=== PATIENT | female | born 2000 | race Caucasian/White ===

== ENCOUNTER 2023-01-12 19:50 | Outpatient (CLI) | payer BC, SELFPAY ==
--- NOTE | 2023-01-18 13:42 | W.PM.SLEEP ---
Sleep Study Details Details Interpreting Provider: Bismark Izaguirre MD Date of Sleep Study: 01/12/23 Sleep Study Details: STUDY TYPE:? Home ? BMI: Not record ORDERING PROVIDER:? Catarino INDICATION:? Concerns about sleep apnea ? SLEEP SUMMARY:? 511.5 minutes monitored RESPIRATORY SUMMARY:? AHI 6.8, supine 7.9, left lateral 5.4, right lateral 5.6 Low oxygen 88 0.1% of study oxygen less than 90% Snoring 6.1% of study PERIODIC LIMB MOVEMENTS OF SLEEP:? Not recorded CARDIAC:? Range 55-114, mean 76.3 beats per minute IMPRESSION:? Mild obstructive sleep apnea slightly worse in the supine position RECOMMENDATION: If patient has daytime hypersomnolence, treatment options would include CPAP AutoSet 4-17, dental appliance and/or airway expansion surgery
== END 2023-01-12 19:51 | disposition home or self-care (01) ==
LOC: SLEEP 19:51
PROVIDERS: PCP Otolaryngology; Visit Provider Otolaryngology
DX: G47.33 Obstructive sleep apnea (adult) (pediatric) (principal)
CPT/HCPCS: 95806

== ENCOUNTER 2023-03-06 00:31 | Outpatient (CLI) | payer BC, SELFPAY | END 2023-03-06 00:32 | disposition home or self-care (01) | LOC: AMB 03-22 13:19 | PROVIDERS: PCP Otolaryngology; Visit Provider Family Medicine | DX: F10.129 Alcohol abuse with intoxication, unspecified (principal) | CPT/HCPCS: A0425; A0427 ==

== ENCOUNTER 2023-03-06 00:53 | Emergency (ER) | payer BC, SELFPAY ==
[2023-03-06 00:59] VITALS: BP 91/47; PULSE 102; RESP 14; TEMP 36.1; O2SAT 99
--- NOTE | 2023-03-06 01:08 | ED_ITS ---
HPI - General Adult General Chief complaint: Fall/Minor Trauma Stated complaint: Head Lac, ETOH Time Seen by Provider: 03/06/23 01:07 Source: patient and EMS Mode of arrival: EMS History of Present Illness HPI narrative: 22-year-old intoxicated female arrives by EMS. Reports that she was drinking heavily at a constitution party when she passed out, hitting her head. It sounds as though she did not fall for more than a standing height and the suspicion is actually that she was seated at the time of the fall. Several other intoxicated people were at the [employer] party who witnessed this. She admits to drinking at least 4 shots but does not recall the events of the fall upon immediate arrival. EMS reporting that she does not take medicines, there were friends that confirmed this. No suspicion for . Denies any long-term health issues, she denies these as well but is of course intoxicated. She has been retching and vomiting. There is vomit on her clothing which I can presume is hers. Does not contain any blood. She reports that she had otherwise been feeling normally today prior to drinking alcohol with no unusual events. Friends called EMS because she was acting very sleepy and they did not feel like they could care for her and they were intoxicated states. Past medical history would not be considered reliable but she does deny any long-term health problems, medications, allergies or surgeries. States that there were no illicit drugs besides under age alcohol tonight. ROS would not be considered ideally reliable but was negative with the exception of the vomiting and intoxication and head injury by EMS, others at the scene and patient. [facility] Social History Smoking Status: Unknown if ever smoked How often do you have a drink containing alcohol: 2-4 times a month AUDIT-C Alcohol total score: 2 Exam Const: Vital Signs, click to edit/add: Vital Signs - 24 hr 03/06/23 00:59 03/06/23 02:00 03/06/23 03:00 Temperature 97.0 F L Pulse Rate [Left P ulse Oximeter] 102 H 90 Respiratory Rate 14 14 Blood Pressure [Ri ght Upper Arm] 91/47 L 111/63 109/93 H Pulse Oximetry 99 98 97 Oxygen Delivery Me thod Room Air Room Air Room Air Other: Clearly intoxicated but will follow commands. Will answer questions with seems to be pretty good reliability. Vomit on clothing but appropriately dressed with no signs of assault. HENMT: Other: 8 mm horizontal laceration on bridge of nose/lower forehead area. Underlying hematoma. Nasal bones and facial bones are otherwise appropriately intact. Opens and closes drawn normally. No signs of dental injury or tongue biting. Eye: Common normals: PERRL, EOMs intact bilaterally and conjunctivae normal General eye: normal appearance of both eyes Conjunctiva: conjunctiva(e) normal Pupil: PERRL Neck & C-Spine: Common normals: full ROM and no lymphadenopathy General: normal visual inspection Cervical spine: cervical ROM normal; no cervical spine tenderness Resp: Common normals: normal respiratory effort, no use of accessory muscles and clear to auscultation bilaterally Auscultation: clear to auscultation bilaterally Cardio: Common normals: regular rate, regular rhythm, S1 normal heart sound, S2 normal heart sound and no murmurs Rate: regular rate Rhythm: regular rhythm Heart sounds: S1 normal and S2 normal GI: Common normals: Normal to inspection, nondistended, normoactive bowel sounds present, soft to palpation, non-tender, no hepatosplenomegaly and no masses Palpation: soft and no hepatosplenomegaly Other: No palpable fundal height Extremity: Common normals: normal to inspection, normal capillary refill and no pedal edema Other: No obvious deformity or signs of injury to extremities Neuro: Common normals: moves all extremities and no focal motor deficits Skin: Narrative: Other than the nose, no other signs of injury. Course Vital Signs Vital signs: Initial Vital Signs Temperature 97.0 F L 03/06/23 00:59 Temperature Source Temporal Artery Scan 03/06/23 00:59 Pulse Rate 102 H 03/06/23 00:59 Pulse Rhythm Regular 03/06/23 00:59 Respiratory Rate 14 03/06/23 00:59 Blood Pressure 91/47 L 03/06/23 00:59 Blood Pressure Mean 61 L 03/06/23 00:59 Pulse Oximetry 99 03/06/23 00:59 Oxygen Delivery Method Room Air 03/06/23 00:59 Vital Signs Temperature 97.0 F L 03/06/23 00:59 Pulse Rate 102 H 03/06/23 00:59 Respiratory Rate 14 04/23/23 00:59 Blood Pressure 91/47 L 03/06/23 00:59 Pulse Oximetry 99 03/06/23 00:59 Oxygen Delivery Method Room Air 03/06/23 00:59 Temperature 97.0 F L 03/06/23 00:59 Pulse Rate 90 03/06/23 02:00 Respiratory Rate 14 03/06/23 02:00 Blood Pressure 109/93 H 03/06/23 03:00 Pulse Oximetry 97 03/06/23 03:00 Oxygen Delivery Method Room Air 03/06/23 03:00 Medical Decision Making MDM Narrative Medical decision making narrative: She is intoxicated but can follow commands well. Father no signs of significant cervical spine injury or is likely intracranial hemorrhage. I do not recommend head CT. And dry. The laceration on her bring her forehead/upper nasal bridge does date somewhat and might heal cosmetically appealing, therefore closure is recommended. Procedure wound closure: 8 mm horizontal laceration on forehead/upper nasal bridge noted cleanse with soapy tap water, revealing no foreign body., noted that it gapes with facial movements. Bleeding slightly. This is covered with Mastisol and Steri strip with good hemostasis and cosmetic closure. Patient was given 4 mg Zofran by EMS. Will continue 500 mL of IV fluids, hung by EMS team. Patient will be monitored for the next couple of hours and if there are no signs of neurological deterioration, she be discharged home. Conservative management regarding hematoma and mild head injury. Update: Patient sobering up, no signs of neurological deterioration. Will be discharged back campus where she is visiting a friend. Discharge Plan Discharge Clinical Impression: Alcohol intoxication, Mild closed head injury Patient Disposition: Home w/ Parent or Adult Condition: Improved Instructions: Head Injury (DC), Alcohol Intoxication (DC), Steristrips (ED) Additional Instructions: You have a small laceration to your nose/forehead area. This was covered with a Steri-Strip. This will fall off on its own in about a week. It is okay to normally wash her face but try to avoid this area. If he edges start to peel in a few days, it is okay to gently remove the remainder of the specialized tape. You did hit your head and have a hematoma underneath the cut. This will actually take weeks to go way. You may end up with more bruising including black eyes tomorrow and this is not of concern. Your likely to have symptoms of mild concussion including nausea, light sensitivity, headache and fatigue for the next few days. Try to rest today but you may resume classes as normal on Tuesday. Drink plenty of fluids. Come back to the emergency department if there is any loss of consciousness, persistent vomiting or other neurological changes. Activity Level: No Restrictions Discharge Diet: Regular Stand Alone Forms: [employer] Info Instructions
--- NOTE | 2023-03-06 01:14 | ED.NURSE ---
pt on visual monitor, care-al. pt sleeping
[2023-03-06 02:00] VITALS: BP 111/63; PULSE 90; RESP 14; O2SAT 98
[2023-03-06 03:00] VITALS: BP 109/93; O2SAT 97
--- OUTSIDE RECORDS SUMMARY | 2023-03-06 05:04 | XMS_ITS | Continuity of Care Document ---
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 [facility] [address] [place], [place] [address] Encounter Diagnosis Allergic rhinitis due to pollen(Discharge Diagnosis) - 08/12/18 Allergic rhinitis due to dust mite(Discharge Diagnosis) - 08/12/18 Allergic rhinitis due to animals(Discharge Diagnosis) - 08/12/18 Allergy to mold spores(Discharge Diagnosis) - 08/12/18 Allergies, Adverse Reactions, Alerts No Known Medication Allergies Immunizations Given and Recorded Vaccine Date Status Refusal Reason meningococcal group B vaccine 06/01/18 Given meningococcal conjugate vaccine 06/01/18 Given meningococcal conjugate vaccine 1 06/25/13 Given human papillomavirus vaccine 2 01/04/14 Given human papillomavirus vaccine 3 08/27/13 Given human papillomavirus vaccine 4 06/25/13 Given tetanus/diphth/pertuss (Tdap) adult/adol 5 06/25/13 Given influenza (LAIV) 6 10/19/12 Given influenza (LAIV) 7 09/15/10 Given influenza virus vaccine, inactivated 8 08/26/09 Gi hood influenza virus vaccine, inactivated 9 10/05/08 Gi hood influenza virus vaccine, inactivated 10 09/30/07 G iven influenza virus vaccine, inactivated 11 09/24/06 G iven influenza virus vaccine, inactivated 12 09/25/05 G iven Hep A, pediatric/adolescent 13 04/18/09 Given Hep A, pediatric/adolescent 14 04/17/08 Given Hep A, pediatric/adolescent 15 08/17/07 Given varicella 16 04/17/08 Given varicella 17 08/17/07 Given IPV 18 05/25/07 Given IPV 02 Recorded IPV 02 Recorded IPV 02 Recorded MMR (measles/mumps/rubella) 19 05/25/07 Given MMR (measles/mumps/rubella) 11/15/03 Recorded DTaP 20 05/25/07 Given DTaP 11/15/03 Recorded DTaP 02 Recorded DTaP 02 Recorded DTaP 02 Recorded pneumococcal (PCV7) 11/15/03 Recorded pneumococcal (PCV7) 02 Recorded pneumococcal (PCV7) 02 Recorded pneumococcal (PCV7) 02 Recorded Hib (HbOC) 05/07/03 Recorded Hib (HbOC) 02 Recorded Hib (HbOC) 02 Recorded Hep B 05/07/03 Recorded Hep B 02 Recorded Hep B 02 Recorded 1Result Comment: Unknown Unit of Measure: UNKNOWNUNIT 2Result Comment: Unknown Unit of Measure: UNKNOWNUNIT 3Result Comment: Unknown Unit of Measure: UNKNOWNUNIT 4Result Comment: Unknown Unit of Measure: UNKNOWNUNIT 5Result Comment: Unknown Unit of Measure: UNKNOWNUNIT 6Result Comment: Unknown Unit of Measure: UNKNOWNUNIT 7Result Comment: Unknown Unit of Measure: UNKNOWNUNIT 8Result Comment: Unknown Unit of Measure: UNKNOWNUNIT 9Result Comment: Unknown Unit of Measure: UNKNOWNUNIT 10Result Comment: Unknown Unit of Measure: UNKNOWNUNIT 11Result Comment: Unknown Unit of Measure: UNKNOWNUNIT 12Result Comment: Unknown Unit of Measure: UNKNOWNUNIT 13Result Comment: Unknown Unit of Measure: UNKNOWNUNIT 14Result Comment: Unknown Unit of Measure: UNKNOWNUNIT 15Result Comment: Unknown Unit of Measure: UNKNOWNUNIT 16Result Comment: Unknown Unit of Measure: UNKNOWNUNIT 17Result Comment: Unknown Unit of Measure: UNKNOWNUNIT 18Result Comment: Unknown Unit of Measure: UNKNOWNUNIT 19Result Comment: Unknown Unit of Measure: UNKNOWNUNIT 20Result Comment: Unknown Unit of Measure: UNKNOWNUNIT Medications fluticasone 50 mcg/inh nasal spray See Instructions, Instructions: USE 1 SPRAY IN EACH NOSTRL DAILY, # 32 gm, Pharmacy: [facility], USE 1 SPRAY IN EACH NOSTRL DAILY Start Date: 08/20/14 Stop Date: 08/21/14 Status: Discontinued montelukast 10 mg oral tablet 1 tab(s) ( 10 mg ), PO, qPM, # 90 tab(s), 2 Refill(s), Type: Maintenance, Pharmacy: [facility], 1 tab(s) po qpm Start Date: 02/06/18 Status: Ordered montelukast 5 mg oral tablet, chewable 1 tab(s) ( 5 mg ), Chewed, qPM, # 90 tab(s), 1 Refill(s), Type: Maintenance Start Date: 02/10/15 Stop Date: 02/10/15 Status: Discontinued montelukast 5 mg oral tablet, chewable 1 tab(s) ( 5 mg ), Chewed, qPM, # 90 tab(s), 1 Refill(s), Type: Maintenance, Pharmacy: [facility]/pharmacy#[id number], 1 tab(s) chewed qpm Start Date: 06/25/14 Stop Date: 08/21/14 Status: Discontinued ProAir HFA 90 mcg/inh inhalation aerosol See Instructions, Instructions: 2 puff(s) inh every 4 hours as needed and/or 10 -20 minutes before exercise as needed., 0 Refill(s), Type: Maintenance Start Date: 06/25/14 Status: Ordered ProAir HFA 90 mcg/inh inhalation aerosol 2 puff(s), inh, q4-6 hrs, Instructions: use with spacer chamber, # 1 EA, 1 Refill(s), Type: Maintenance, Pharmacy: [facility]/pharmacy #[id number], Please keep on file until patient request refill., 2 puff(s) Inhale q4-6 hrs,Instr:use with spacer chamber Start Date: 07/03/18 Status: Ordered Qvar 80 mcg/inh inhalation aerosol 2 puff(s), inh, 1-2x/day, # 1 EA, 3 Refill(s), Type: Maintenance Start Date: 02/10/15 Stop Date: 02/10/15 Status: Discontinued Qvar 80 mcg/inh inhalation aerosol See Instructions, Instructions: INHALE 2 PUFFS BY MOUTH TWO TIMES A DAY, # 26.1 gm, Pharmacy: [facility], INHALE 2 PUFFS BY MOUTH TWO TIMES A DAY Start Date: 06/28/14 Stop Date: 08/21/14 Status: Discontinued Qvar Redihaler 80 mcg/inh inhalation aerosol 2 puff(s), inh, 1-2x/day, # 3 EA, 2 Refill(s), Type: Maintenance, Pharmacy: [facility], 2 puff(s) inh 1-2x/day Start Date: 02/06/18 Status: Ordered Zoloft 50 mg oral tablet 1.5 tab(s) ( 75 mg ), PO, Daily, # 135 tab(s), 3 Refill(s), Type: Maintenance, Pharmacy: [facility], 1.5 tab(s) po daily Start Date: 07/21/17 Status: Ordered Problem List Condition Effective Dates Status Health Status Inform ant 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 Allergic rhinitis due to dus t mite(Confirmed) Active Allergic rhinitis due to pollen(Confirmed) Active Allergy to mold spores(Confirmed) Active Atopic dermatitis(Confirmed) Active Asthma, mild persistent(Confirmed) Active Social anxiety disorder(Confirmed) Active Diagnosis Diagnosis Type Effective Dates Health Status Cl inical Service Informant Allergic rhinitis due to animals Discharge Diagnosis 08/12/18 Allergic rhinitis due to pollen Discharge Diagnosis 08/12/18 Allergy to mold spores Discharge Diagnosis 08/12/18 Allergic rhinitis due to dust mite Discharge Diagnosis 08/12/18 Social History Social History Type Response Smoking Status Never (less than 100 in lifetime); Concerns about tobacco use in household: No 1 entered on: 08/25/17 1father smokes outside no quit info wanted
--- OUTSIDE RECORDS SUMMARY | 2023-03-06 05:04 | XMS_ITS | Continuity of Care Document ---
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 [place], [place] [address] Encounter Diagnosis Allergic rhinitis due to pollen(Discharge Diagnosis) - 09/08/19 Allergic rhinitis due to dust mite(Discharge Diagnosis) - 09/08/19 Allergic rhinitis due to animals(Discharge Diagnosis) - 09/08/19 Allergy to mold spores(Discharge Diagnosis) - 09/08/19 Allergies, Adverse Reactions, Alerts No Known Medication Allergies Immunizations Given and Recorded Vaccine Date Status Refusal Reason MMR (measles/mumps/rubella) 04/13/19 Given MMR (measles/mumps/rubella) 1 05/25/07 Given MMR (measles/mumps/rubella) 11/15/03 Recorded meningococcal group B vaccine 06/01/18 Given meningococcal conjugate vaccine 06/01/18 Given meningococcal conjugate vaccine 2 06/25/13 Given human papillomavirus vaccine 3 01/04/14 Given human papillomavirus vaccine 4 08/27/13 Given human papillomavirus vaccine 5 06/25/13 Given tetanus/diphth/pertuss (Tdap) adult/adol 6 06/25/13 Given influenza (LAIV) 7 10/19/12 Given influenza (LAIV) 8 09/15/10 Given influenza virus vaccine, inactivated 9 08/26/09 Gi hood influenza virus vaccine, inactivated 10 10/05/08 G iven influenza virus vaccine, inactivated 11 09/30/07 G iven influenza virus vaccine, inactivated 12 09/24/06 G iven influenza virus vaccine, inactivated 13 09/25/05 G iven Hep A, pediatric/adolescent 14 04/18/09 Given Hep A, pediatric/adolescent 15 04/17/08 Given Hep A, pediatric/adolescent 16 08/17/07 Given varicella 17 04/17/08 Given varicella 18 08/17/07 Given IPV 19 05/25/07 Given IPV 02 Recorded IPV 02 Recorded IPV 02 Recorded DTaP 20 05/25/07 Given DTaP 11/15/03 Recorded DTaP 02 Recorded DTaP 02 Recorded DTaP 02 Recorded pneumococcal (PCV7) 11/15/03 Recorded pneumococcal (PCV7) 02 Recorded pneumococcal (PCV7) 02 Recorded pneumococcal (PCV7) 02 Recorded Hep B 05/07/03 Recorded Hep B 02 Recorded Hep B 02 Recorded Hib (HbOC) 05/07/03 Recorded Hib (HbOC) 02 Recorded Hib (HbOC) 02 Recorded 1Result Comment: Unknown Unit of [...] Comment: Unknown Unit of Measure: UNKNOWNUNIT Medications cetirizine 10 mg oral tablet = 1 tab(s) ( 10 mg ), PO, Daily, # 90 tab(s), 3 Refill(s), Type: Maintenance, [id number], 1 tab(s) Oral daily Start Date: 01/23/19 Status: Ordered fluticasone 50 mcg/inh nasal spray See Instructions, Instructions: USE 1 SPRAY IN EACH NOSTRL DAILY, # 32 gm, Pharmacy: [facility], USE 1 SPRAY IN EACH NOSTRL DAILY Start Date: 08/20/14 Stop Date: 08/21/14 Status: Discontinued fluticasone 50 mcg/inh nasal spray = 1 spray(s), Nasal, daily, Instructions: for allergies, # 16 gm, 3 Refill(s), Type: Maintenance, [id number], 1 spray(s) Nasal daily,Instr:for allergies Start Date: 01/23/19 Status: Ordered montelukast 10 mg oral tablet = 1 tab(s) ( 10 mg ), PO, qPM, # 90 tab(s), 2 Refill(s), Type: Maintenance, [id number], 1 tab(s) Oral qpm Start Date: 01/23/19 Status: Ordered montelukast 5 mg oral tablet, chewable 1 tab(s) ( 5 mg ), Chewed, qPM, # 90 tab(s), 1 Refill(s), Type: Maintenance, Pharmacy: [facility]/pharmacy#[id number], 1 tab(s) chewed qpm Start Date: 06/25/14 Stop Date: 08/21/14 Status: Discontinued montelukast 5 mg oral tablet, chewable 1 tab(s) ( 5 mg ), Chewed, qPM, # 90 tab(s), 1 Refill(s), Type: Maintenance Start Date: 02/10/15 Stop Date: 02/10/15 Status: Discontinued ProAir HFA 90 mcg/inh inhalation aerosol See Instructions, Instructions: 2 puff(s) inh every 4 hours as needed and/or 10 -20 minutes before exercise as needed., 0 Refill(s), Type: Maintenance Start Date: 06/25/14 Status: Ordered ProAir HFA 90 mcg/inh inhalation aerosol 2 puff(s), inh, q4-6 hrs, # 1 EA, 0 Refill(s), Type: Maintenance, Pharmacy: [facility]/pharmacy #[id number], Please keep on file until patient request refill., 2 puff(s) Inhale q4-6 hrs Start Date: 01/23/19 Status: Ordered Qvar 80 mcg/inh inhalation aerosol See Instructions, Instructions: INHALE 2 PUFFS BY MOUTH TWO TIMES A DAY, # 26.1 gm, [email or web address], INHALE 2 PUFFS BY MOUTH TWO TIMES A DAY Start Date: 06/28/14 Stop Date: 08/21/14 Status: Discontinued Qvar 80 mcg/inh inhalation aerosol 2 puff(s), inh, 1-2x/day, # 1 EA, 3 Refill(s), Type: Maintenance Start Date: 02/10/15 Stop Date: 02/10/15 Status: Discontinued Qvar Redihaler 80 mcg/inh inhalation aerosol 2 puff(s), inh, 1-2x/day, # 1 EA, 5 Refill(s), Type: Maintenance, Pharmacy: [facility]/pharmacy #[id number], 2 puff(s) Inhale 1-2x/day Start Date: 01/23/19 Status: Ordered Zoloft 50 mg oral tablet 1.5 tab(s) ( 75 mg ), PO, Daily, # 135 tab(s), 3 Refill(s), Type: Maintenance, Pharmacy: [facility], 1.5 tab(s) po daily Start Date: 07/21/17 Stop Date: 08/29/18 Status: Discontinued Zoloft 50 mg oral tablet = 1.5 tab(s) ( 75 mg ), PO, Daily, # 45 tab(s), 6 Refill(s), Type: Maintenance, Pharmacy: [facility]/pharmacy #[id number], 1.5 tab(s) Oral daily,x30 day(s) Start Date: 08/29/18 Stop Date: 03/27/19 Status: Ordered Problem List Condition Effective Dates Status Health Status Inform ant 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 Allergic rhinitis due to dus t mite(Confirmed) Active Allergic rhinitis due to pollen(Confirmed) Active Allergy to mold spores(Confirmed) Active Atopic dermatitis(Confirmed) Active Asthma, mild persistent(Confirmed) Active Social anxiety disorder(Confirmed) Active Diagnosis Diagnosis Type Effective Dates Health Status Cl inical Service Informant Allergy to mold spores Discharge Diagnosis 09/08/19 Allergic rhinitis due to dust mite Discharge Diagnosis 09/08/19 Allergic rhinitis due to pollen Discharge Diagnosis 09/08/19 Allergic rhinitis due to animals Discharge Diagnosis 09/08/19 Social History Social History Type Response Smoking Status Never (less than 100 in lifetime); Concerns about tobacco use in household: No 1 entered on: 08/25/17 1father smokes outside no quit info wanted
--- OUTSIDE RECORDS SUMMARY | 2023-03-06 05:04 | XMS_ITS | Continuity of Care Document ---
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) - 01/30/19 Allergic rhinitis due to dust mite(Discharge Diagnosis) - 01/30/19 Allergy to mold spores(Discharge Diagnosis) - 01/30/19 Allergies, Adverse Reactions, Alerts No Known Medication [...] 90 tab(s), 3 Refill(s), Type: Maintenance, Pharmacy: [facility]/pharmacy #[id number], 1 tab(s) Oral daily Start Date: 01/23/19 Status: Ordered fluticasone 50 mcg/inh nasal spray See Instructions, Instructions: USE 1 SPRAY IN EACH NOSTRL DAILY, # 32 gm, Pharmacy: [facility], USE 1 SPRAY IN EACH NOSTRL DAILY Start Date: 08/20/14 Stop Date: 08/21/14 Status: Discontinued fluticasone 50 mcg/inh nasal spray = 1 spray(s), Nasal, daily, Instructions: for allergies, # 16 gm, 3 Refill(s), Type: Maintenance, [id number] 1 spray(s) Nasal daily,Instr:for allergies Start Date: 01/23/19 Status: Ordered montelukast 10 mg oral tablet = 1 tab(s) ( 10 mg ), PO, qPM, # 90 tab(s), 2 Refill(s), Type: Maintenance, Pharmacy: [facility]/pharmacy #[id number], 1 tab(s) Oral qpm Start Date: 01/23/19 Status: Ordered montelukast 5 mg oral tablet, chewable 1 tab(s) ( 5 mg ), Chewed, qPM, # 90 tab(s), 1 Refill(s), Type: Maintenance Start Date: 02/10/15 Stop Date: 02/10/15 Status: Discontinued montelukast 5 mg oral tablet, chewable 1 tab(s) ( 5 mg ), Chewed, qPM, # 90 tab(s), 1 Refill(s), Type: Maintenance, Pharmacy: [facility]/pharmacy#0241, 1 tab(s) chewed qpm Start Date: 06/25/14 Stop Date: 08/21/14 Status: Discontinued ProAir HFA 90 mcg/inh inhalation aerosol 2 puff(s), inh, q4-6 hrs, # 1 EA, 0 Refill(s), Type: Maintenance, Pharmacy: [facility]/pharmacy #[id number], Please keep on file until patient request refill., 2 puff(s) Inhale q4-6 hrs Start Date: 01/23/19 Status: Ordered ProAir HFA 90 mcg/inh inhalation aerosol See Instructions, Instructions: 2 puff(s) inh every 4 hours as needed and/or 10 -20 minutes before exercise as needed., 0 Refill(s), Type: Maintenance Start Date: 06/25/14 Status: Ordered Qvar 80 mcg/inh inhalation aerosol 2 puff(s), inh, 1-2x/day, # 1 EA, 3 Refill(s), Type: Maintenance Start Date: 02/10/15 Stop Date: 02/10/15 Status: Discontinued Qvar 80 mcg/inh inhalation aerosol See Instructions, Instructions: INHALE 2 PUFFS BY MOUTH TWO TIMES A DAY, # 26.1 gm, Pharmacy: [facility], INHALE 2 PUFFS BY MOUTH TWO TIMES A DAY Start Date: 06/28/14 Stop Date: 08/21/14 Status: Discontinued Qvar Redihaler 80 mcg/inh inhalation aerosol 2 puff(s), inh, 1-2x/day, # 1 EA, 5 Refill(s), Type: Maintenance, Pharmacy: [facility]/pharmacy #[id number], 2 puff(s) Inhale 1-2x/day Start Date: 01/23/19 Status: Ordered Zoloft 50 mg oral tablet 1.5 tab(s) ( 75 mg ), PO, Daily, # 135 tab(s), 3 Refill(s), Type: Maintenance, [facility]acy: [facility], 1.5 tab(s) po daily Start Date: 07/21/17 Stop Date: 08/29/18 Status: Discontinued Zoloft 50 mg oral tablet = 1.5 tab(s) ( 75 mg ), PO, Daily, # 45 tab(s), 6 Refill(s), Type: Maintenance, Pharmacy: [facility]/pharmacy #[id number], 1.5 tab(s) Oral daily,x30 day(s) Start [...] inical Service Informant Allergic rhinitis due to dust mite Discharge Diagnosis 01/30/19 Allergic rhinitis due to animals Discharge Diagnosis 01/30/19 Allergic rhinitis due to pollen Discharge Diagnosis 01/30/19 Allergy to mold spores Discharge Diagnosis 01/30/19 Social History Social History Type Response Smoking Status Never (less than 100 in lifetime); Concerns about tobacco use in household: No 1 entered on: 08/25/17 1father smokes outside no quit info wanted
--- OUTSIDE RECORDS SUMMARY | 2023-03-06 05:04 | XMS_ITS | Continuity of Care Document ---
Author Name Unknown Organization [facility] Address [address] [address]- Care Team Providers Care Press Smith Helper Name Role Phone Tesfaye Arthur MD Primary Care Physician Encounter 05/05/19 - 05/07/[address] 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) - 05/05/19 Allergic rhinitis due to dust mite(Discharge Diagnosis) - 05/05/19 Allergy to mold spores(Discharge Diagnosis) - 05/05/19 Allergies, Adverse Reactions, Alerts No Known Medication [...] 90 tab(s), 3 Refill(s), Type: Maintenance, [id number] 1 tab(s) Oral daily Start Date: 01/23/19 Status: Ordered fluticasone 50 mcg/inh nasal spray See Instructions, Instructions: USE 1 SPRAY IN EACH NOSTRL DAILY, # 32 gm, Pharmacy: [facility], USE 1 SPRAY IN EACH NOSTRL DAILY Start Date: 08/20/14 Stop Date: 08/21/14 Status: Discontinued fluticasone 50 mcg/inh nasal spray = 1 spray(s), Nasal, daily, Instructions: for allergies, # 16 gm, 3 Refill(s), Type: Maintenance, [id number], 1 spray(s) Nasal daily,Instr:for allergies Start Date: 01/23/19 Status: Ordered montelukast 10 mg oral tablet = 1 tab(s) ( 10 mg ), PO, qPM, # 90 tab(s), 2 Refill(s), Type: Maintenance, [id number], 1 tab(s) Oral qpm Start Date: 01/23/19 Status: Ordered montelukast 5 mg oral tablet, chewable 1 tab(s) ( 5 mg ), Chewed, qPM, # 90 tab(s), 1 Refill(s), Type: Maintenance, Pharmacy: [facility]/pharm[facility]#0241, 1 tab(s) chewed qpm Start Date: [...] 1 EA, 0 Refill(s), Type: Maintenance, Pharmacy: [facility]/pharmacy #0241, Please keep on file until patient request refill., 2 puff(s) Inhale q4-6 hrs Start Date: 01/23/19 Status: Ordered Qvar 80 mcg/inh inhalation aerosol See Instructions, Instructions: INHALE 2 PUFFS BY MOUTH TWO TIMES A DAY, # 26.1 gm, [facility] INHALE 2 PUFFS BY MOUTH TWO TIMES A DAY Start Date: 06/28/14 Stop Date: 08/21/14 Status: Discontinued Qvar 80 mcg/inh inhalation aerosol 2 puff(s), inh, 1-2x/day, # 1 EA, 3 Refill(s), Type: Maintenance Start Date: 02/10/15 Stop Date: 02/10/15 Status: Discontinued Qvar Redihaler 80 mcg/inh inhalation aerosol 2 puff(s), inh, 1-2x/day, # 1 EA, 5 Refill(s), Type: Maintenance, Pharmacy: [facility]/pharm[facility] #0241, 2 puff(s) Inhale 1-2x/day Start Date: 01/23/19 Status: Ordered Zoloft 50 mg oral tablet 1.5 tab(s) ( 75 mg ), PO, Daily, # 135 tab(s), 3 Refill(s), Type: Maintenance, Pharmacy: [facility], 1.5 tab(s) po daily Start Date: 07/21/17 Stop Date: 08/29/18 Status: Discontinued Zoloft 50 mg oral tablet = 1.5 tab(s) ( 75 mg ), PO, Daily, # 45 tab(s), 6 Refill(s), Type: Maintenance, Pharmacy: [facility]/pharm[facility] #0241, 1.5 tab(s) Oral daily,x30 day(s) [...] rhinitis due to dust mite Discharge Diagnosis 05/05/19 Allergic rhinitis due to pollen Discharge Diagnosis 05/05/19 Allergic rhinitis due to animals Discharge Diagnosis 05/05/19 Allergy to mold spores Discharge Diagnosis 05/05/19 Social History Social History Type Response Smoking Status Never (less than 100 in lifetime); Concerns about tobacco use in household: No 1 entered on: 08/25/17 1father smokes outside no quit info wanted
--- OUTSIDE RECORDS SUMMARY | 2023-03-06 05:04 | XMS_ITS | Continuity of Care Document ---
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) - 08/28/19 Allergic rhinitis due to pollen(Discharge Diagnosis) - 08/28/19 Allergic rhinitis due to dust mite(Discharge Diagnosis) - 08/28/19 Allergies, Adverse Reactions, Alerts No Known Medication [...] tab(s), 3 Refill(s), Type: Maintenance, [id number], 1 tab(s) Oral daily Start Date: 01/23/19 Status: Ordered fluticasone 50 mcg/inh nasal spray See Instructions, Instructions: USE 1 SPRAY IN EACH NOSTRL DAILY, # 32 gm, Pharmacy: [facility], USE 1 SPRAY IN EACH NOSTRL DAILY Start Date: 08/20/14 Stop Date: 08/21/14 Status: Discontinued fluticasone 50 mcg/inh nasal spray = 1 spray(s), Nasal, daily, Instructions: for allergies, # 16 gm, 3 Refill(s), Type: Maintenance, [id number], 1 spray(s) Nasal daily,Instr:for allergies Start Date: 01/23/19 Status: Ordered montelukast 10 mg oral tablet = 1 tab(s) ( 10 mg ), PO, qPM, # 90 tab(s), 2 Refill(s), Type: Maintenance, [id number], 1 tab(s) Oral qpm Start Date: 01/23/19 Status: Ordered montelukast 5 mg oral tablet, chewable 1 tab(s) ( 5 mg ), Chewed, qPM, # 90 tab(s), 1 Refill(s), Type: Maintenance, Pharmacy: [facility]/pharmacy#0241, 1 tab(s) chewed qpm Start Date: 06/25/14 [...] 1 EA, 0 Refill(s), Type: Maintenance, [facility], Please keep on file until patient request refill., 2 puff(s) Inhale q4-6 hrs Start Date: 01/23/19 Status: Ordered Qvar 80 mcg/inh inhalation aerosol See Instructions, Instructions: INHALE 2 PUFFS BY MOUTH TWO TIMES A DAY, # 26.1 gm, Pharmacy: [facility], INHALE 2 PUFFS BY MOUTH TWO TIMES A DAY Start Date: 06/28/14 Stop Date: 08/21/14 Status: Discontinued Qvar 80 mcg/inh inhalation aerosol 2 puff(s), inh, 1-2x/day, # 1 EA, 3 Refill(s), Type: Maintenance Start Date: 02/10/15 Stop Date: 02/10/15 Status: Discontinued Qvar Redihaler 80 mcg/inh inhalation aerosol 2 puff(s), inh, 1-2x/day, # 1 EA, 5 Refill(s), Type: Maintenance, [id number], 2 puff(s) Inhale 1-2x/day Start Date: 01/23/19 Status: Ordered Zoloft 50 mg oral tablet 1.5 tab(s) ( 75 mg ), PO, Daily, # 135 tab(s), 3 Refill(s), Type: Maintenance, Pharmacy: [facility], 1.5 tab(s) po daily Start Date: 07/21/17 Stop Date: 08/29/18 Status: Discontinued Zoloft 50 mg oral tablet = 1.5 tab(s) ( 75 mg ), PO, Daily, # 45 tab(s), 6 Refill(s), Type: Maintenance, Pharmacy: [facility]/pharmacy #0241, 1.5 tab(s) Oral daily,x30 day(s) Start [...] Informant Allergy to mold spores Discharge Diagnosis 08/28/19 Allergic rhinitis due to animals Discharge Diagnosis 08/28/19 Allergic rhinitis due to pollen Discharge Diagnosis 08/28/19 Allergic rhinitis due to dust mite Discharge Diagnosis 08/28/19 Social History Social History Type Response Smoking Status Never (less than 100 in lifetime); Concerns about tobacco use in household: No 1 entered on: 08/25/17 1father smokes outside no quit info wanted
--- OUTSIDE RECORDS SUMMARY | 2023-03-06 05:04 | XMS_ITS | Continuity of Care Document ---
Author Name Unknown Organization [facility] Address [address] [address]- Care Team Providers Care Director Of Sustainability Name Role Phone Tesfaye Arthur MD Primary Care Physician [phone] Encounter 07/13/22 - 07/15/[address] [place], [place] [address] Encounter Diagnosis Depression screen(Discharge Diagnosis) - 07/13/22 Mild intermittent asthma(Discharge Diagnosis) - 07/13/22 Social anxiety disorder(Discharge Diagnosis) - 07/13/22 Attending Physician: Tesfaye Arthur MD Referring Physician: Tesfaye Arthur MD Allergies, Adverse Reactions, Alerts No Known Medication Allergies Immunizations Given and Recorded Vaccine Date Status Refusal Reason SARS-CoV-2 (COVID-19) Pfizer-162b2 10/27/21 Record ed SARS-CoV-2 (COVID-19) Pfizer-162b2 01/13/21 Record ed SARS-CoV-2 (COVID-19) Pfizer-162b2 12/22/20 Record ed influenza virus vaccine, inactivated 08/15/21 Bandar rded influenza virus vaccine, inactivated 08/28/20 Bandar rded influenza virus vaccine, inactivated 10/07/19 Bandar rded influenza virus vaccine, inactivated 09/10/18 Bandar rded influenza virus vaccine, inactivated 08/31/13 Bandar rded influenza virus vaccine, inactivated 1 08/26/09 Gi hood influenza virus vaccine, inactivated 2 10/05/08 Gi hood influenza virus vaccine, inactivated 3 09/30/07 Gi hood influenza virus vaccine, inactivated 4 09/24/06 Gi [facility] influenza virus vaccine, inactivated 5 09/25/05 [facility] meningococcal group B vaccine 06/11/20 Recorded meningococcal group B vaccine 06/01/18 Given MMR (measles/mumps/rubella) 04/13/19 Given MMR (measles/mumps/rubella) 6 05/25/07 Given MMR (measles/mumps/rubella) 11/15/03 Recorded meningococcal conjugate vaccine 06/01/18 Given meningococcal conjugate vaccine 7 06/25/13 Given influenza 09/19/16 Recorded influenza (LAIV) 10/01/15 Recorded influenza (LAIV) 09/30/14 Recorded influenza (LAIV) 8 10/19/12 Given influenza (LAIV) 9 09/15/10 Given human papillomavirus vaccine 10 01/04/14 Given human papillomavirus vaccine 11 08/27/13 Given human papillomavirus vaccine 12 06/25/13 Given human papillomavirus vaccine 06/25/03 Recorded tetanus/diphth/pertuss (Tdap) adult/adol 13 06/25/13 Given Hep A, pediatric/adolescent 14 04/18/09 Given Hep A, pediatric/adolescent 15 04/17/08 Given Hep A, pediatric/adolescent 16 08/17/07 Given varicella 17 04/17/08 Given varicella 18 08/17/07 Given varicella 05/07/03 Recorded IPV 19 05/25/07 Given IPV 02 Recorded [...] Comment: Unknown Unit of Measure: UNKNOWNUNIT Medications ProAir HFA 90 mcg/inh inhalation aerosol See Instructions, Instructions: 2 puff(s) inh every 4 hours as needed and/or 10 -20 minutes before exercise as needed., 0 Refill(s), Type: Maintenance Start Date: 06/25/14 Status: Ordered Zoloft 100 mg oral tablet = 1 tab(s) ( 100 mg ), PO, Daily, # 30 tab(s), 6 Refill(s), Type: Maintenance, Pharmacy: [facility]/pharmacy #0241, 1 tab(s) Oral daily,x30 day(s), 68.5, in, 07/13/22 8:31:00 CDT, Height Measured, 202.4, lb, 07/13/22 8:31:00 CDT, Weight Measured Start Date: 07/13/22 Stop Date: 02/08/23 Status: Ordered Problem List Condition Effective Dates Status Health Status Inform ant 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 Allergic rhinitis due to dus t mite(Confirmed) Active Allergic rhinitis due to pollen(Confirmed) Active Allergy to mold spores(Confirmed) Active Atopic dermatitis(Confirmed) Active Mild intermittent asthma(Confirmed) Active Obesity(Probable Diagnosis) Active Social anxiety disorder(Confirmed) Active Diagnosis Diagnosis Type Effective Dates Health Status Clinical Service Informant Mild intermittent asthma Discharge Diagnosis 07/13/22 Social anxiety disorder Discharge Diagnosis 07/13/22 Depression screen Discharge Diagnosis 07/13/22 Vital Signs Most recent to oldest [Reference Range]: 1 Height Measured 68.5 in (07/13/22 8:31 AM) Weight Measured 202.4 lb (07/13/22 8:31 AM) Body Mass Index [18.5-25 kg/m2] 30.32 kg /m2 *HI* (07/13/22 8:31 AM) BSA 2.1 m2 (07/13/22 8:31 AM) Blood Pressure [80-130/60-80 mmHg] 90/66 mmHg (07/13/22 8:31 AM) Mean Arterial Pressure 74 mmHg (07/13/22 8:31 AM) Allergies Verified? Yes (07/13/22 8:31 AM) Medication History Verified? Yes (07/13/22 8:31 AM) Social History Social History Type Response Smoking Status Never (less than 100 in lifetime); Concerns about tobacco use in household: No 1 entered on: 06/29/22 Sex Female 1father smokes outside no quit info wanted Patient Care team information Personnel Name: Tesfaye Arthur MD Address: Address: [address] P: F: [place] [address]- [place]
--- OUTSIDE RECORDS SUMMARY | 2023-03-06 05:04 | XMS_ITS | Continuity of Care Document ---
Author Name Unknown Organization [facility] Address [address] [address]- Care Team Providers Care Clearance Coordinator Name Role Phone Tesfaye Arthur MD Primary Care Physician [phone] Encounter 02/17/19 - 02/19/[address] [place], [place] [address] Encounter Diagnosis Allergic rhinitis due to animals(Discharge Diagnosis) - 02/17/19 Allergic rhinitis due to dust mite(Discharge Diagnosis) - 02/17/19 Allergy to mold spores(Discharge Diagnosis) - 02/17/19 Allergic rhinitis due to pollen(Discharge Diagnosis) - 02/17/19 Allergies, Adverse Reactions, Alerts No Known Medication [...] EACH NOSTRL DAILY, # 32 gm, Pharmacy: [facility], USE 1 SPRAY IN [...] 90 tab(s), 1 Refill(s), Type: Maintenance, Pharmacy: [facility]/pharmacy#0241, 1 tab(s) chewed qpm Start Date: 06/25/14 Stop Date: 08/21/14 Status: Discontinued ProAir HFA 90 mcg/inh inhalation aerosol 2 puff(s), inh, q4-6 hrs, # 1 EA, 0 Refill(s), Type: Maintenance, Pharmacy: [facility]/pharmacy #0241, Please keep on file until patient [...] TIMES A DAY, # 26.1 gm, Pharmacy: [facility], INHALE 2 PUFFS BY MOUTH TWO TIMES A DAY Start Date: 06/28/14 Stop Date: 08/21/14 Status: Discontinued Qvar Redihaler 80 mcg/inh inhalation aerosol 2 puff(s), inh, 1-2x/day, # 1 EA, 5 Refill(s), Type: Maintenance, Pharmacy: [facility]/pharmacy #0241, 2 puff(s) Inhale 1-2x/day Start Date: 01/23/19 Status: Ordered Zoloft 50 mg oral tablet 1.5 tab(s) ( 75 mg ), PO, Daily, # 135 tab(s), 3 Refill(s), Type: Maintenance, Pharmacy: [facility], 1.5 tab(s) po daily Start Date: 07/21/17 Stop Date: 08/29/18 Status: Discontinued Zoloft 50 mg oral tablet = 1.5 tab(s) ( 75 mg ), PO, Daily, # 45 tab(s), 6 Refill(s), Type: Maintenance, Pharmacy: [facility]/pharmacy #0241, 1.5 tab(s) Oral daily,x30 day(s) Start [...] rhinitis due to dust mite Discharge Diagnosis 02/17/19 Allergic rhinitis due to animals Discharge Diagnosis 02/17/19 Allergy to mold spores Discharge Diagnosis 02/17/19 Allergic rhinitis due to pollen Discharge Diagnosis 02/17/19 Social History Social History Type Response Smoking Status Never (less than 100 in lifetime); Concerns about tobacco use in household: No 1 entered on: 08/25/17 1father smokes outside no quit info wanted
--- OUTSIDE RECORDS SUMMARY | 2023-03-06 05:04 | XMS_ITS | Continuity of Care Document ---
Author Name Unknown Organization [facility] Address [address] [address]- Care Team Providers Care Composition Stone Applicator Name Role Phone Tesfaye Arthur MD Primary Care Physician Encounter 06/24/18 - 06/26/[address] 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) - 06/24/18 Allergic rhinitis due to dust mite(Discharge Diagnosis) - 06/24/18 Allergic rhinitis due to pollen(Discharge Diagnosis) - 06/24/18 Allergy to mold spores(Discharge Diagnosis) - 06/24/18 Allergies, Adverse Reactions, Alerts No Known Medication [...] EACH NOSTRL DAILY, # 32 gm, Pharmacy: [facility], USE 1 SPRAY IN EACH NOSTRL DAILY Start Date: 08/20/14 Stop Date: 08/21/14 Status: Discontinued montelukast 10 mg oral tablet 1 tab(s) ( 10 mg ), PO, qPM, # 90 tab(s), 2 Refill(s), Type: Maintenance, [facility], [facility] tab(s) po qpm Start Date: 02/06/18 Status: Ordered montelukast 5 mg oral tablet, chewable 1 tab(s) ( 5 mg ), Chewed, qPM, # 90 tab(s), 1 Refill(s), Type: Maintenance Start Date: 02/10/15 Stop Date: 02/10/15 Status: Discontinued montelukast 5 mg oral tablet, chewable 1 tab(s) ( 5 mg ), Chewed, qPM, # 90 tab(s), 1 Refill(s), Type: Maintenance, Pharmacy: [facility]/pharmacy#0241, 1 tab(s) chewed qpm Start Date: 06/25/14 Stop Date: 08/21/14 Status: Discontinued ProAir HFA 90 mcg/inh inhalation aerosol See Instructions, Instructions: 2 puff(s) inh every 4 hours as needed and/or 10 -20 minutes before exercise as needed., 0 Refill(s), Type: Maintenance Start Date: 06/25/14 Status: Ordered ProAir HFA 90 mcg/inh inhalation aerosol 2 puff(s), inh, q4 hrs, Instructions: use with spacer chamber, # 2 EA, 1 Refill(s), Type: Maintenance, [facility]acy: [facility], Please keep on file until patient request refill., 2 puff(s) inh q4 hrs,Instr:use with spacer chamber Start Date: 02/06/18 Status: Ordered Qvar 80 mcg/inh inhalation aerosol 2 puff(s), inh, 1-2x/day, # 1 EA, 3 Refill(s), Type: Maintenance Start Date: 02/10/15 Stop Date: 02/10/15 Status: Discontinued Qvar 80 mcg/inh inhalation aerosol See Instructions, Instructions: INHALE 2 PUFFS BY MOUTH TWO TIMES A DAY, # 26.1 gm, Pharmacy: [facility], INHALE 2 PUFFS BY MOUTH TWO TIMES [...] rhinitis due to dust mite Discharge Diagnosis 06/24/18 Allergy to mold spores Discharge Diagnosis 06/24/18 Allergic rhinitis due to animals Discharge Diagnosis 06/24/18 Allergic rhinitis due to pollen Discharge Diagnosis 06/24/18 Social History Social History Type Response Smoking Status Never (less than 100 in lifetime); Concerns about tobacco use in household: No 1 entered on: 08/25/17 1father smokes outside no quit info wanted
--- OUTSIDE RECORDS SUMMARY | 2023-03-06 05:04 | XMS_ITS | Continuity of Care Document ---
Author Name Unknown Organization [facility] Address [address] [address]- Care Team Providers Care Receiving Associate Name Role Phone Tesfaye Arthur MD Primary Care Physician [phone] Encounter 12/16/18 - 12/18/[address] 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) - 12/16/18 Allergy to mold spores(Discharge Diagnosis) - 12/16/18 Allergies, Adverse Reactions, Alerts No Known Medication [...] EACH NOSTRL DAILY, # 32 gm, Pharmacy: [facility], USE 1 SPRAY IN EACH NOSTRL DAILY Start Date: 08/20/14 Stop Date: 08/21/14 Status: Discontinued montelukast 10 mg oral tablet = 1 tab(s) ( 10 mg ), PO, qPM, # 90 tab(s), 1 Refill(s), Type: Maintenance, Pharmacy: [facility]/pharmacy #[id number], 1 tab(s) Oral qpm Start Date: 08/29/18 Status: Ordered montelukast 5 mg oral tablet, chewable 1 tab(s) ( 5 mg ), Chewed, qPM, # 90 tab(s), 1 Refill(s), Type: Maintenance Start Date: 02/10/15 Stop Date: 02/10/15 Status: Discontinued montelukast 5 mg oral tablet, chewable 1 tab(s) ( 5 mg ), Chewed, qPM, # 90 tab(s), 1 Refill(s), Type: Maintenance, Pharmacy: [facility]/pharmacy#0241, 1 tab(s) chewed qpm Start Date: 06/25/14 [...] 1 EA, 1 Refill(s), Type: Maintenance, Pharmacy: [facility]/pharmacy #0241, Please keep on file until patient [...] TIMES A DAY, # 26.1 gm, Pharmacy: [facility] [place], INHALE 2 PUFFS BY MOUTH TWO TIMES A DAY Start Date: 06/28/14 Stop Date: 08/21/14 Status: Discontinued Qvar Redihaler 80 mcg/inh inhalation aerosol 2 puff(s), inh, 1-2x/day, # 3 EA, 2 Refill(s), Type: Maintenance, [facility]acy: [facility], 2 puff(s) inh 1-2x/day Start Date: 02/06/18 Status: Ordered Zoloft 50 mg oral tablet 1.5 tab(s) ( 75 mg ), PO, Daily, # 135 tab(s), 3 Refill(s), Type: Maintenance, Pharmacy: [facility], 1.5 tab(s) po daily Start Date: 07/21/17 Stop Date: 08/29/18 Status: Discontinued Zoloft 50 mg oral tablet = 1.5 tab(s) ( 75 mg ), PO, Daily, # 45 tab(s), 6 Refill(s), Type: Maintenance, Pharmacy: [facility]/pharmacy #[id number], 1.5 tab(s) Oral daily,x30 day(s) Start [...] inical Service Informant Allergic rhinitis due to pollen Discharge Diagnosis 12/16/18 Allergic rhinitis due to animals Discharge Diagnosis 12/16/18 Allergy to mold spores Discharge Diagnosis 12/16/18 Allergic rhinitis due to dust mite Discharge Diagnosis 12/16/18 Social History Social History Type Response Smoking Status Never (less than 100 in lifetime); Concerns about tobacco use in household: No 1 entered on: 08/25/17 1father smokes outside no quit info wanted
--- OUTSIDE RECORDS SUMMARY | 2023-03-06 05:04 | XMS_ITS | Continuity of Care Document ---
Author Name Unknown Organization [facility] Address [address] [address]- Care Team Providers Care Air Intercept Controller Name Role Phone Tesfaye Arthur MD Primary Care Physician Encounter 02/17/19 - 02/19/[address] [place], [place] [address] Encounter Diagnosis Allergic rhinitis due to animals(Discharge [...] 90 tab(s), 3 Refill(s), Type: Maintenance, [id number] tab(s[facility] Oral daily Start Date: 01/23/19 Status: Ordered fluticasone 50 mcg/inh nasal spray See Instructions, Instructions: USE 1 SPRAY IN EACH NOSTRL DAILY, # 32 gm, Pharmacy: [facility], USE 1 SPRAY IN EACH NOSTRL DAILY Start Date: 08/20/14 Stop Date: 08/21/14 Status: Discontinued fluticasone 50 mcg/inh nasal spray = 1 spray(s), Nasal, daily, Instructions: for allergies, # 16 gm, 3 Refill(s), Type: Maintenance, [id number], 1 spray(s) Nasal daily,Instr:for allergies Start Date: 01/23/19 Status: Ordered montelukast 10 mg oral tablet = 1 tab(s) ( 10 mg ), PO, qPM, # 90 tab(s), 2 Refill(s), Type: Maintenance, [id number], 1 tab(s) Oral qpm Start Date: 01/23/19 Status: Ordered montelukast 5 mg oral tablet, chewable 1 tab(s) ( 5 mg ), Chewed, qPM, # 90 tab(s), 1 Refill(s), Type: Maintenance Start Date: 02/10/15 Stop Date: 02/10/15 Status: Discontinued montelukast 5 mg oral tablet, chewable 1 tab(s) ( 5 mg ), Chewed, qPM, # 90 tab(s), 1 Refill(s), Type: Maintenance, Pharmacy: [facility]/pharmacy#0241, 1 tab(s) chewed qpm Start Date: 06/25/14 Stop Date: 08/21/14 Status: Discontinued ProAir HFA 90 mcg/inh inhalation aerosol 2 puff(s), inh, q4-6 hrs, # 1 EA, 0 Refill(s), Type: Maintenance, Pharmacy: [facility]/pharmacy #[id number], Please keep on file [...] TIMES A DAY, # 26.1 gm, Pharmacy: [facility] [place], INHALE 2 PUFFS BY MOUTH TWO TIMES A DAY Start Date: 06/28/14 Stop Date: 08/21/14 Status: Discontinued Qvar Redihaler 80 mcg/inh inhalation aerosol 2 puff(s), inh, 1-2x/day, # 1 EA, 5 Refill(s), Type: Maintenance, Pharmacy: [facility]/pharmacy #0241, 2 puff(s) Inhale 1-2x/day Start Date: 01/23/19 Status: Ordered Zoloft 50 mg oral tablet 1.5 tab(s) ( 75 mg ), PO, Daily, # 135 tab(s), 3 Refill(s), Type: Maintenance, Pharmacy: [facility], 1.5 tab(s) po daily Start Date: 07/21/17 Stop Date: 08/29/18 Status: Discontinued Zoloft 50 mg oral tablet = 1.5 tab(s) ( 75 mg ), PO, Daily, # 45 tab(s), 6 Refill(s), Type: Maintenance, Pharmacy: [facility]/pharmacy #0241, 1.5 tab(s) Oral daily,x30 day(s) Start [...]
--- OUTSIDE RECORDS SUMMARY | 2023-03-06 05:04 | XMS_ITS | Continuity of Care Document ---
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) - 04/29/18 Allergic rhinitis due to pollen(Discharge Diagnosis) - 04/29/18 Allergic rhinitis due to dust mite(Discharge Diagnosis) - 04/29/18 Allergy to mold spores(Discharge Diagnosis) - 04/29/18 Allergies, Adverse Reactions, Alerts No Known Medication Allergies Immunizations Given and Recorded Vaccine Date Status Refusal Reason human papillomavirus vaccine 1 01/04/14 Given human papillomavirus vaccine 2 08/27/13 Given human papillomavirus vaccine 3 06/25/13 Given meningococcal conjugate vaccine 4 06/25/13 Given tetanus/diphth/pertuss (Tdap) adult/adol [...] DAILY, # 32 gm, Pharmacy: [facility], USE 1 SPRAY IN EACH NOSTRL DAILY Start Date: 08/20/14 Stop Date: 08/21/14 Status: Discontinued montelukast 10 mg oral tablet 1 tab(s) ( 10 mg ), PO, qPM, # 90 tab(s), 2 Refill(s), Type: Maintenance, [facility], 1 tab(s) po qpm Start Date: 02/06/18 Status: Ordered montelukast 5 mg oral tablet, chewable 1 tab(s) ( 5 mg ), Chewed, qPM, # 90 tab(s), 1 Refill(s), Type: Maintenance Start Date: 02/10/15 Stop Date: 02/10/15 Status: Discontinued montelukast 5 mg oral tablet, chewable 1 tab(s) ( 5 mg ), Chewed, qPM, # 90 tab(s), 1 Refill(s), Type: Maintenance, Pharmacy: [facility]/pharmacy#0241, 1 tab(s) chewed qpm Start [...] 2 EA, 1 Refill(s), Type: Maintenance, Pharmacy: [facility], Please keep on file until [...] TIMES A DAY, # 26.1 gm, Pharmacy: [facility], INHALE 2 PUFFS BY MOUTH TWO TIMES [...] Active Allergic rhinitis due to pollen(Confirmed) Active Allergic rhinitis due to pollen(Confirmed) Active Allergy to mold spores(Confirmed) Active Asthma, mild persistent(Confirmed) Active Social anxiety disorder(Confirmed) Active Diagnosis Diagnosis Type Effective Dates Health Status Cl inical Service Informant Allergic rhinitis due to dust mite Discharge Diagnosis 04/29/18 Allergic rhinitis due to animals Discharge Diagnosis 04/29/18 Allergy to mold spores Discharge Diagnosis 04/29/18 Allergic rhinitis due to pollen Discharge Diagnosis 04/29/18 Social History Social History Type Response Smoking Status Never (less than 100 in lifetime); Concerns about tobacco use in household: No 1 entered on: 08/25/17 1father smokes outside no quit info wanted
--- OUTSIDE RECORDS SUMMARY | 2023-03-06 05:04 | XMS_ITS | Continuity of Care Document ---
Author Name Unknown Organization [facility] Address [address] [address]- Care Team Providers Care Acquisition Professional Name Role Phone Tesfaye Arthur MD Primary Care Physician Encounter 10/27/19 - 10/29/[address] 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) - 10/27/19 Allergic rhinitis due to dust mite(Discharge Diagnosis) - 10/27/19 Allergy to mold spores(Discharge Diagnosis) - 10/27/19 Allergies, Adverse Reactions, Alerts No Known Medication [...] 90 tab(s), 3 Refill(s), Type: Maintenance, [id number] tab(s) Oral daily Start Date: 01/23/19 Status: Ordered fluticasone 50 mcg/inh nasal spray See Instructions, Instructions: USE 1 SPRAY IN EACH NOSTRL DAILY, # 32 gm, Pharmacy: [facility], USE 1 SPRAY IN EACH NOSTRL DAILY Start Date: 08/20/14 Stop Date: 08/21/14 Status: Discontinued fluticasone 50 mcg/inh nasal spray = 1 spray(s), Nasal, daily, Instructions: for allergies, # 16 gm, 3 Refill(s), Type: Maintenance, [id number], 1 spray(s) Nasal daily,Instr:for allergies Start Date: 01/23/19 Status: Ordered montelukast 10 mg oral tablet = 1 tab(s) ( 10 mg ), PO, qPM, # 90 tab(s), 2 Refill(s), Type: Maintenance, [id number], 1 tab(s) Oral qpm Start Date: 01/23/19 Status: Ordered montelukast 5 mg oral tablet, chewable 1 tab(s) ( 5 mg ), Chewed, qPM, # 90 tab(s), 1 Refill(s), Type: Maintenance, Pharmacy: [facility]/pharmacy#0241, 1 tab(s) chewed qpm Start Date: 06/25/14 [...] 1 EA, 0 Refill(s), Type: Maintenance, Pharmacy: [facility]/pharmacy #0241, Please keep on file until patient request refill., 2 puff(s) Inhale q4-6 hrs Start Date: 01/23/19 Status: Ordered Qvar 80 mcg/inh inhalation aerosol See Instructions, Instructions: INHALE 2 PUFFS BY MOUTH TWO TIMES A DAY, # 26.1 gm, [facility] [place], INHALE 2 PUFFS BY MOUTH TWO TIMES A DAY Start Date: 06/28/14 Stop Date: 08/21/14 Status: Discontinued Qvar 80 mcg/inh inhalation aerosol 2 puff(s), inh, 1-2x/day, # 1 EA, 3 Refill(s), Type: Maintenance Start Date: 02/10/15 Stop Date: 02/10/15 Status: Discontinued Qvar Redihaler 80 mcg/inh inhalation aerosol 2 puff(s), inh, 1-2x/day, # 1 EA, 5 Refill(s), Type: Maintenance, Pharmacy: [facility]/pharmacy #0241, 2 puff(s) Inhale 1-2x/day Start Date: 01/23/19 Status: Ordered Zoloft 50 mg oral tablet 1.5 tab(s) ( 75 mg ), PO, Daily, # 135 tab(s), 3 Refill(s), Type: Maintenance, Pharmacy: [facility], 1.5 tab(s) po daily Start Date: 07/21/17 Stop Date: 08/29/18 Status: Discontinued Zoloft 50 mg oral tablet = 1.5 tab(s) ( 75 mg ), PO, Daily, # 45 tab(s), 6 Refill(s), Type: Maintenance, Pharmacy: [facility]/pharmacy #0241, 1.5 tab(s) Oral daily,x30 day(s) Start [...] Allergic rhinitis due to pollen Discharge Diagnosis 10/27/19 Allergic rhinitis due to dust mite Discharge Diagnosis 10/27/19 Allergy to mold spores Discharge Diagnosis 10/27/19 Allergic rhinitis due to animals Discharge Diagnosis 10/27/19 Social History Social History Type Response Smoking Status Never (less than 100 in lifetime); Concerns about tobacco use in household: No 1 entered on: 08/25/17 1father smokes outside no quit info wanted
--- OUTSIDE RECORDS SUMMARY | 2023-03-06 05:04 | XMS_ITS | Continuity of Care Document ---
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) - 02/21/20 Allergic rhinitis due to dust mite(Discharge Diagnosis) - 02/21/20 Allergy to mold spores(Discharge Diagnosis) - 02/21/20 Asthma, mild persistent(Discharge Diagnosis) - 02/21/20 Attending Physician: Yusuf Bashir MD Allergies, Adverse Reactions, Alerts No Known Medication Allergies Assessment and Plan Extracted from: Title:D/C IT Author:Yusuf Bashir MD Date:02/21/20 Allergic rhinitis due to ani mals??(J30.81) Allergic rhinitis due to dust mite??(J30.89) Allergic rhinitis due to pollen??(J30.1) Allergy to mold spores??(Z91.09) ??Discontinue IT course started 08/2013 and last shot01/19/2020 for the 2004 T/G/R at 0.60 ml, MiteFP/Cat/AP Dog at 0.60 ml, and Mckay Mold AC 0.40 ml. Advised to call with concerns.?? Starting college in fall 2019. Add cetirizine 10 mg daily??and fluticasone nasal??as needed ?? Asthma, mild persistent??(J45.30) AAP reviewed.?? Very stable in the PFT's in past but notices more sob/chest tightness off??Qvar. She??has more EIA as well. Continue the Qvar 80 2 puffs daily or step up to Symbicort 160 2 puffs am (advise to look into the cost-- cheaper with copay coupon). ?? Off??singulair??10 mg daily??for now.?? Proair prn. ?? F/U 1 year??for asthma check ? This was a telemedicine visit with approval from Estella Lao/ austin Rinaldi.?? It was between myself at the [facility] All[facility]??office and Estella Lao/ austin Rinaldi??located in the [facility].The visit was 15 minutes in [id number] with > 50% counseling and coordination of care. Immunizations Given and Recorded Vaccine Date Status [...] Comment: Unknown Unit of Measure: UNKNOWNUNIT Medications AirDuo RespiClick 232 mcg-14 mcg/inh inhalation powder 1 inh, Inhale, bid, Instructions: rinse mouth and throat after use (fill if cheaper than Qvar), # 1EA, 0 Refill(s), Type: Maintenance, Pharmacy: [facility] #[facility]1, 1 inh Inhale bid,Instr:rinse mouth and throat after use; (fill if cheaper than Qvar) Start Date: 02/21/20 Status: Ordered fluticasone 50 mcg/inh nasal spray See Instructions, Instructions: USE 1 SPRAY IN EACH NOSTRL DAILY, # 32 gm, [facility], USE 1 SPRAY IN EACH NOSTRL DAILY Start Date: 08/20/14 Stop Date: 08/21/14 Status: Discontinued montelukast 5 mg oral tablet, chewable 1 tab(s) ( 5 mg ), Chewed, qPM, # 90 tab(s), 1 Refill(s), Type: Maintenance, Pharmacy: [facility]/pharmacy#0241, 1 tab(s) chewed qpm Start Date: 06/25/14 Stop Date: 08/21/14 Status: Discontinued montelukast 5 mg oral tablet, chewable 1 tab(s) ( 5 mg ), Chewed, qPM, # 90 tab(s), 1 Refill(s), Type: Maintenance Start Date: 02/10/15 Stop Date: 02/10/15 Status: Discontinued ProAir HFA 90 mcg/inh inhalation aerosol 2 puff(s), inh, q4-6 hrs, # 1 EA, 0 Refill(s), Type: Maintenance, Pharmacy: [facility]/pharmacy #0241, Please keep on file until patient request refill., 2 puff(s) Inhale q4-6 hrs Start Date: 01/25/20 Status: Ordered ProAir HFA 90 mcg/inh inhalation aerosol See Instructions, Instructions: 2 puff(s) inh every 4 hours as needed and/or 10 -20 minutes before exercise as needed., 0 Refill(s), Type: Maintenance Start Date: 06/25/14 Status: Ordered Qvar 80 mcg/inh inhalation aerosol See Instructions, Instructions: INHALE 2 PUFFS BY MOUTH TWO TIMES A DAY, # 26.1 gm, Pharmacy: [facility], INHALE 2 PUFFS BY MOUTH TWO TIMES A DAY Start Date: 06/28/14 Stop Date: 08/21/14 Status: Discontinued Qvar 80 mcg/inh inhalation aerosol 2 puff(s), inh, 1-2x/day, # 1 EA, 3 Refill(s), Type: Maintenance Start Date: 02/10/15 Stop Date: 02/10/15 Status: Discontinued Qvar Redihaler 80 mcg/inh inhalation aerosol 2 puff(s), Inhale, bid, Instructions: use discount coupon, # 1 EA, 5 Refill(s), Type: Maintenance, Pharmacy: [facility], 2 puff(s) Inhale bid,Instr:use discount coupon Start Date: 02/21/20 Status: Ordered Zoloft 50 mg oral tablet 1.5 tab(s) ( 75 mg ), PO, Daily, # 135 tab(s), 3 Refill(s), Type: Maintenance, [facility], 1.5 tab(s) po daily Start Date: 07/21/17 Stop Date: 08/29/18 Status: Discontinued Zoloft 50 mg oral tablet = 1.5 tab(s) ( 75 mg ), PO, Daily, # 45 tab(s), 6 Refill(s), Type: Maintenance, Pharmacy: [facility]/pharmacy #0241, 1.5 tab(s) Oral daily,x30 day(s) Start [...] Effective Dates Health Status Clinical Service Informant Allergic rhinitis due to pollen Discharge Diagnosis 02/21/20 Allergic rhinitis due to animals Discharge Diagnosis 02/21/20 Asthma, mild persistent Discharge Diagnosis 02/21/20 Allergic rhinitis due to dust mite Discharge Diagnosis 02/21/20 Allergy to mold spores Discharge Diagnosis 02/21/20 Vital Signs Most recent to oldest [Reference Range]: 1 Height Measured 68.5 in (02/21/20 12:52 PM) Weight Measured 170 lb (02/21/20 12:52 PM) Body Mass Index 25.47 kg/m2 (02/21/20 12:52 PM) BSA 1.93 m2 (02/21/20 12:52 PM) Social History Social History Type Response Smoking Status Never (less than 100 in lifetime); Concerns about tobacco use in household: No 1 entered on: 08/25/17 1father smokes outside no quit info wanted
--- OUTSIDE RECORDS SUMMARY | 2023-03-06 05:04 | XMS_ITS | Continuity of Care Document ---
Author Name Unknown Organization [facility] Address [address] [address]- Care Team Providers Care Director Of Physiotherapy Services Name Role Phone Tesfaye Arthur MD Primary Care Physician Encounter 06/16/19 - 06/18/[address] 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 Diagnosis) - 06/16/19 Allergic rhinitis due to dust mite(Discharge Diagnosis) - 06/16/19 Allergy to mold spores(Discharge Diagnosis) - 06/16/19 Allergies, Adverse Reactions, Alerts No Known Medication [...] tab(s), 3 Refill(s), Type: Maintenance, [facility] tab(s) Oral daily Start Date: 01/23/19 Status: Ordered fluticasone 50 mcg/inh nasal spray See Instructions, Instructions: USE 1 SPRAY IN EACH NOSTRL DAILY, # 32 gm, Pharmacy: [facility], USE 1 SPRAY IN EACH NOSTRL DAILY Start Date: 08/20/14 Stop Date: 08/21/14 Status: Discontinued fluticasone 50 mcg/inh nasal spray = 1 spray(s), Nasal, daily, Instructions: for allergies, # 16 gm, 3 Refill(s), Type: Maintenance, [facility], 1 spray(s) Nasal daily,Instr:for allergies Start Date: 01/23/19 Status: Ordered montelukast 10 mg oral tablet = 1 tab(s) ( 10 mg ), PO, qPM, # 90 tab(s), 2 Refill(s), Type: Maintenance, [facility], 1 tab(s) Oral qpm Start Date: 01/23/19 Status: Ordered montelukast 5 mg oral tablet, chewable 1 tab(s) ( 5 mg ), Chewed, qPM, # 90 tab(s), 1 Refill(s), Type: Maintenance, Pharmacy: [facility]/pharm[facility]#0241, 1 tab(s) chewed qpm Start Date: [...] 1 EA, 0 Refill(s), Type: Maintenance, Pharmacy: [facility]/pharmacy #0241, Please keep on file until patient request refill., 2 puff(s) Inhale q4-6 hrs Start Date: 01/23/19 Status: Ordered Qvar 80 mcg/inh inhalation aerosol See Instructions, Instructions: INHALE 2 PUFFS BY MOUTH TWO TIMES A DAY, # 26.1 gm, [facility] INHALE 2 PUFFS BY MOUTH TWO TIMES A DAY Start Date: 06/28/14 Stop Date: 08/21/14 Status: Discontinued Qvar 80 mcg/inh inhalation aerosol 2 puff(s), inh, 1-2x/day, # 1 EA, 3 Refill(s), Type: Maintenance Start Date: 02/10/15 Stop Date: 02/10/15 Status: Discontinued Qvar Redihaler 80 mcg/inh inhalation aerosol 2 puff(s), inh, 1-2x/day, # 1 EA, 5 Refill(s), Type: Maintenance, Pharmacy: [facility]/pharmacy #0241, 2 puff(s) Inhale 1-2x/day Start Date: 01/23/19 Status: Ordered Zoloft 50 mg oral tablet 1.5 tab(s) ( 75 mg ), PO, Daily, # 135 tab(s), 3 Refill(s), Type: Maintenance, Pharmacy: [facility], 1.5 tab(s) po daily Start Date: 07/21/17 Stop Date: 08/29/18 Status: Discontinued Zoloft 50 mg oral tablet = 1.5 tab(s) ( 75 mg ), PO, Daily, # 45 tab(s), 6 Refill(s), Type: Maintenance, Pharmacy: [facility]/pharmacy #0241, 1.5 tab(s) Oral daily,x30 day(s) [...] rhinitis due to dust mite Discharge Diagnosis 06/16/19 Allergy to mold spores Discharge Diagnosis 06/16/19 Allergic rhinitis due to animals Discharge Diagnosis 06/16/19 Allergic rhinitis due to pollen Discharge Diagnosis 06/16/19 Social History Social History Type Response Smoking Status Never (less than 100 in lifetime); Concerns about tobacco use in household: No 1 entered on: 08/25/17 1father smokes outside no quit info wanted
--- OUTSIDE RECORDS SUMMARY | 2023-03-06 05:05 | XMS_ITS | Continuity of Care Document ---
Author Name Unknown Organization [facility] Address [address] [address]- Care Team Providers Care Heavy Equipment Service Technician Name Role Phone Tesfaye Arthur MD Primary Care Physician [phone] Encounter 02/03/19 - 02/05/[address] [facility] [address] [place], [place] [address] Encounter Diagnosis Allergic rhinitis due to animals(Discharge Diagnosis) - 02/03/19 Allergic rhinitis due to dust mite(Discharge Diagnosis) - 02/03/19 Allergic rhinitis due to pollen(Discharge Diagnosis) - 02/03/19 Allergy to mold spores(Discharge Diagnosis) - 02/03/19 Allergies, Adverse Reactions, Alerts No Known Medication [...] 90 tab(s), 3 Refill(s), Type: Maintenance, Pharmacy: [facility]/pharmacy #[id number], 1 tab(s) Oral daily Start Date: 01/23/19 Status: Ordered fluticasone 50 mcg/inh nasal spray See Instructions, Instructions: USE 1 SPRAY IN EACH NOSTRL DAILY, # 32 gm, Pharmacy: [facility], USE 1 SPRAY IN EACH NOSTRL DAILY Start Date: 08/20/14 Stop Date: 08/21/14 Status: Discontinued fluticasone 50 mcg/inh nasal spray = 1 spray(s), Nasal, daily, Instructions: for allergies, # 16 gm, 3 Refill(s), Type: Maintenance, [id number] 1 spray(s) Nasal daily,Instr:for allergies Start Date: 01/23/19 Status: Ordered montelukast 10 mg oral tablet = 1 tab(s) ( 10 mg ), PO, qPM, # 90 tab(s), 2 Refill(s), Type: Maintenance, Pharmacy: [facility]/pharmacy #[id number], 1 tab(s) Oral qpm Start Date: 01/23/19 Status: Ordered montelukast 5 mg oral tablet, chewable 1 tab(s) ( 5 mg ), Chewed, qPM, # 90 tab(s), 1 Refill(s), Type: Maintenance Start Date: 02/10/15 Stop Date: 02/10/15 Status: Discontinued montelukast 5 mg oral tablet, chewable 1 tab(s) ( 5 mg ), Chewed, qPM, # 90 tab(s), 1 Refill(s), Type: Maintenance, Pharmacy: [facility]/pharmacy#0241, 1 tab(s) chewed qpm Start Date: 06/25/14 Stop Date: 08/21/14 Status: Discontinued ProAir HFA 90 mcg/inh inhalation aerosol 2 puff(s), inh, q4-6 hrs, # 1 EA, 0 Refill(s), Type: Maintenance, Pharmacy: [facility]/pharmacy #[id number], Please keep on file [...] TIMES A DAY, # 26.1 gm, Pharmacy: [facility] [place], INHALE 2 PUFFS BY MOUTH TWO TIMES A DAY Start Date: 06/28/14 Stop Date: 08/21/14 Status: Discontinued Qvar Redihaler 80 mcg/inh inhalation aerosol 2 puff(s), inh, 1-2x/day, # 1 EA, 5 Refill(s), Type: Maintenance, Pharmacy: [facility]/pharmacy #0241, 2 puff(s) Inhale 1-2x/day Start Date: 01/23/19 Status: Ordered Zoloft 50 mg oral tablet 1.5 tab(s) ( 75 mg ), PO, Daily, # 135 tab(s), 3 Refill(s), Type: Maintenance, Pharmacy: [facility], 1.5 tab(s) po daily Start Date: 07/21/17 Stop Date: 08/29/18 Status: Discontinued Zoloft 50 mg oral tablet = 1.5 tab(s) ( 75 mg ), PO, Daily, # 45 tab(s), 6 Refill(s), Type: Maintenance, Pharmacy: [facility], 1.5 tab(s) Oral daily,x30 day(s) Start [...] rhinitis due to dust mite Discharge Diagnosis 02/03/19 Allergy to mold spores Discharge Diagnosis 02/03/19 Allergic rhinitis due to animals Discharge Diagnosis 02/03/19 Allergic rhinitis due to pollen Discharge Diagnosis 02/03/19 Social History Social History Type Response Smoking Status Never (less than 100 in lifetime); Concerns about tobacco use in household: No 1 entered on: 08/25/17 1father smokes outside no quit info wanted
--- OUTSIDE RECORDS SUMMARY | 2023-03-06 05:05 | XMS_ITS | Continuity of Care Document ---
Author Name Unknown Organization [facility] Address [address] [address]- Care Team Providers Care Piercing Machine Operator Name Role Phone Tesfaye Arthur MD Primary Care Physician [phone] Encounter 06/24/18 - 06/26/[address] [facility] [address] [place], [place] [address] Encounter Diagnosis Allergic rhinitis due [...] EACH NOSTRL DAILY, # 32 gm, Pharmacy: [facility], USE 1 SPRAY IN EACH NOSTRL DAILY Start Date: 08/20/14 Stop Date: 08/21/14 Status: Discontinued montelukast 10 mg oral tablet 1 tab(s) ( 10 mg ), PO, qPM, # 90 tab(s), 2 Refill(s), Type: Maintenance, [facility], 1 tab(s) po qpm Start Date: 02/06/18 Status: Ordered montelukast 5 mg oral tablet, chewable 1 tab(s) ( 5 mg ), Chewed, qPM, # 90 tab(s), 1 Refill(s), Type: Maintenance Start Date: 02/10/15 Stop Date: 02/10/15 Status: Discontinued montelukast 5 mg oral tablet, chewable 1 tab(s) ( 5 mg ), Chewed, qPM, # 90 tab(s), 1 Refill(s), Type: Maintenance, Pharmacy: [facility]/pharmacy#0241, 1 tab(s) chewed qpm Start [...] EA, 1 Refill(s), Type: Maintenance, [facility]acy: [facility], Please keep on file until [...] TIMES A DAY, # 26.1 gm, Pharmacy: [facility] [place], INHALE 2 PUFFS BY MOUTH TWO TIMES [...]
--- OUTSIDE RECORDS SUMMARY | 2023-03-06 05:05 | XMS_ITS | Continuity of Care Document ---
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 Name Role Phone Tesfaye Arthur MD Primary Care Physician Encounter 06/29/22 - 07/01/[address] 200 [place], [place] [address] Encounter Diagnosis Depression screen(Discharge Diagnosis) - 06/29/22 Social anxiety disorder(Discharge Diagnosis) - 06/29/22 Attending Physician: Tesfaye Arthur MD Referring Physician: [...] # 1EA, 0 Refill(s), Type: Maintenance, Pharmacy: [facility]/pharmacy #0241, 1 inh Inhale bid,Instr:rinse mouth and throat after use; (fill if cheaper than Qvar) Start Date: 02/21/20 Status: Ordered ProAir HFA 90 mcg/inh inhalation aerosol See Instructions, Instructions: 2 puff(s) inh every 4 hours as needed and/or 10 -20 minutes before exercise as needed., 0 Refill(s), Type: Maintenance Start Date: 06/25/14 Status: Ordered ProAir HFA 90 mcg/inh inhalation aerosol 2 puff(s), inh, q4-6 hrs, # 1 EA, 0 Refill(s), Type: Maintenance, Pharmacy: [facility]/pharmacy #0241, Please keep on file until patient request refill., 2 puff(s) Inhale q4-6 hrs Start Date: 01/25/20 Status: Ordered Qvar Redihaler 80 mcg/inh inhalation aerosol 2 puff(s), Inhale, bid, Instructions: use discount coupon, # 1 EA, 5 Refill(s), Type: Maintenance, [facility], 2 puff(s) Inhale bid,Instr:use discount coupon Start Date: 02/21/20 Status: Ordered Zoloft 50 mg oral tablet = 1 tab(s) ( 50 mg ), PO, Daily, # 30 tab(s), 0 Refill(s), Type: Maintenance, Pharmacy: [facility]/pharmacy #0241, 1 tab(s) Oral daily,x30 day(s), 68.5, in, 06/29/22 8:13:00 CDT, Height Measured, 201.6, lb,06/29/22 8:13:00 CDT, Weight Measured Start Date: 06/29/22 Stop Date: 07/29/22 Status: Ordered Problem List Condition Effective Dates Status Health Status Inform ant 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 Allergic rhinitis due to dus t mite(Confirmed) Active Allergic rhinitis due to pollen(Confirmed) Active Allergy to mold spores(Confirmed) Active Atopic dermatitis(Confirmed) Active Asthma, mild persistent(Confirmed) Active Obesity(Probable Diagnosis) Active Social anxiety disorder(Confirmed) Active Diagnosis Diagnosis Type Effective Dates Health Status Clinical Service Informant Social anxiety disorder Discharge Diagnosis 06/29/22 Depression screen Discharge Diagnosis 06/29/22 Vital Signs Most recent to oldest [Reference Range]: 1 Height Measured 68.5 in (06/29/22 8:13 AM) Weight Measured 201.6 lb (06/29/22 8:13 AM) Body Mass Index [18.5-25 kg/m2] 30.2 kg/ m2 *HI* (06/29/22 8:13 AM) BSA 2.1 m2 (06/29/22 8:13 AM) Blood Pressure [80-130/60-80 mmHg] 114/7 0mmHg (06/29/22 8:13 AM) Mean Arterial Pressure 85 mmHg (06/29/22 8:13 AM) Allergies Verified? Yes (06/29/22 8:13 AM) Medication History Verified? Yes (06/29/22 8:13 AM) Social History Social History Type Response Smoking Status Never (less than 100 in lifetime); Concerns about tobacco use in household: No 1 entered on: 06/29/22 Sex Female 1father smokes outside no quit info wanted Patient Care team information Personnel Name: Tesfaye Arthur MD Address: Address: [place] [address] P: F: SHALOM Cervantes [id number]- [place]
--- OUTSIDE RECORDS SUMMARY | 2023-03-06 05:05 | XMS_ITS | Continuity of Care Document ---
Author Name Unknown Organization [facility] Address [address] [address]- Care Team Providers Care Quill Worker Name Role Phone Tesfaye Arthur MD Primary Care Physician [phone] Encounter 07/28/19 - 07/30/[address] [facility] [address] [place], [place] [address] Encounter Diagnosis Allergic rhinitis due to pollen(Discharge Diagnosis) - 07/28/19 Allergic rhinitis due to animals(Discharge Diagnosis) - 07/28/19 Allergic rhinitis due to dust mite(Discharge Diagnosis) - 07/28/19 Allergy to mold spores(Discharge Diagnosis) - 07/28/19 Allergies, Adverse Reactions, Alerts No Known Medication [...] 90 tab(s), 3 Refill(s), Type: Maintenance, [id number], 1 tab(s) Oral daily Start Date: 01/23/19 Status: Ordered fluticasone 50 mcg/inh nasal spray See Instructions, Instructions: USE 1 SPRAY IN EACH NOSTRL DAILY, # 32 gm, Pharmacy: [facility], USE 1 SPRAY IN EACH NOSTRL DAILY Start Date: 08/20/14 Stop Date: 08/21/14 Status: Discontinued fluticasone 50 mcg/inh nasal spray = 1 spray(s), Nasal, daily, Instructions: for allergies, # 16 gm, 3 Refill(s), Type: Maintenance, [id number], 1 spray(s) Nasal daily,Instr:for allergies Start Date: 01/23/19 Status: Ordered montelukast 10 mg oral tablet = 1 tab(s) ( 10 mg ), PO, qPM, # 90 tab(s), 2 Refill(s), Type: Maintenance, [facility], 1 tab(s) Oral qpm Start Date: 01/23/19 Status: Ordered montelukast 5 mg oral tablet, chewable 1 tab(s) ( 5 mg ), Chewed, qPM, # 90 tab(s), 1 Refill(s), Type: Maintenance, Pharmacy: [facility]/pharmacy#0241, 1 tab(s) chewed qpm Start Date: 06/25/14 [...] 1 EA, 0 Refill(s), Type: Maintenance, Pharmacy: [facility]/pharmacy #0241, Please keep on file until patient request refill., 2 puff(s) Inhale q4-6 hrs Start Date: 01/23/19 Status: Ordered Qvar 80 mcg/inh inhalation aerosol See Instructions, Instructions: INHALE 2 PUFFS BY MOUTH TWO TIMES A DAY, # 26.1 gm, [facility] [place], INHALE 2 PUFFS BY MOUTH TWO TIMES A DAY Start Date: 06/28/14 Stop Date: 08/21/14 Status: Discontinued Qvar 80 mcg/inh inhalation aerosol 2 puff(s), inh, 1-2x/day, # 1 EA, 3 Refill(s), Type: Maintenance Start Date: 02/10/15 Stop Date: 02/10/15 Status: Discontinued Qvar Redihaler 80 mcg/inh inhalation aerosol 2 puff(s), inh, 1-2x/day, # 1 EA, 5 Refill(s), Type: Maintenance, Pharmacy: [facility]/pharmacy #0241, 2 puff(s) Inhale 1-2x/day Start Date: 01/23/19 Status: Ordered Zoloft 50 mg oral tablet 1.5 tab(s) ( 75 mg ), PO, Daily, # 135 tab(s), 3 Refill(s), Type: Maintenance, Pharmacy: [facility], 1.5 tab(s) po daily Start Date: 07/21/17 Stop Date: 08/29/18 Status: Discontinued Zoloft 50 mg oral tablet = 1.5 tab(s) ( 75 mg ), PO, Daily, # 45 tab(s), 6 Refill(s), Type: Maintenance, Pharmacy: [facility]/pharmacy #0241, 1.5 tab(s) Oral daily,x30 day(s) Start [...] Allergic rhinitis due to pollen Discharge Diagnosis 07/28/19 Allergic rhinitis due to animals Discharge Diagnosis 07/28/19 Allergy to mold spores Discharge Diagnosis 07/28/19 Allergic rhinitis due to dust mite Discharge Diagnosis 07/28/19 Social History Social History Type Response Smoking Status Never (less than 100 in lifetime); Concerns about tobacco use in household: No 1 entered on: 08/25/17 1father smokes outside no quit info wanted
--- OUTSIDE RECORDS SUMMARY | 2023-03-06 05:05 | XMS_ITS | Continuity of Care Document ---
Author Name Unknown Organization [facility] Address [address] [place] [address]- Care Team Providers Care Aircraft Fueler Name Role Phone Tesfaye Arthur MD Primary Care Physician Encounter 02/21/20 - 02/23/20 [address] [place], [place] [address] Attending Physician: Yusuf Bashir MD Allergies, Adverse [...] # 1EA, 0 Refill(s), Type: Maintenance, Pharmacy: [facility]/pharmacy #0241, 1 inh Inhale bid,Instr:rinse mouth and throat after use; (fill if cheaper than Qvar) Start Date: 02/21/20 Status: Ordered fluticasone 50 mcg/inh nasal spray See Instructions, Instructions: USE 1 SPRAY IN EACH NOSTRL DAILY, # 32 gm, [facility], USE 1 SPRAY IN EACH NOSTRL DAILY Start Date: 08/20/14 Stop Date: 08/21/14 Status: Discontinued montelukast 5 mg oral tablet, chewable 1 tab(s) ( 5 mg ), Chewed, qPM, # 90 tab(s), 1 Refill(s), Type: Maintenance, Pharmacy: [facility]/pharmacy#0241, 1 tab(s) chewed qpm Start Date: 06/25/14 Stop Date: 08/21/14 Status: Discontinued montelukast 5 mg oral tablet, chewable 1 tab(s) ( 5 mg ), Chewed, qPM, # 90 tab(s), 1 Refill(s), Type: Maintenance Start Date: 02/10/15 Stop Date: 02/10/15 Status: Discontinued ProAir HFA 90 mcg/inh inhalation aerosol 2 puff(s), inh, q4-6 hrs, # 1 EA, 0 Refill(s), Type: Maintenance, Pharmacy: [facility]/pharmacy #0241, Please keep on file until patient [...] TIMES A DAY, # 26.1 gm, Pharmacy: [facility] [place], INHALE 2 PUFFS BY MOUTH TWO TIMES A DAY Start Date: 06/28/14 Stop Date: 08/21/14 Status: Discontinued Qvar 80 mcg/inh inhalation aerosol 2 puff(s), inh, 1-2x/day, # 1 EA, 3 Refill(s), Type: Maintenance Start Date: 02/10/15 Stop Date: 02/10/15 Status: Discontinued Qvar Redihaler 80 mcg/inh inhalation aerosol 2 puff(s), Inhale, bid, Instructions: use discount coupon, # 1 EA, 5 Refill(s), Type: Maintenance, Pharmacy: [facility]/pharmacy #0241, 2 puff(s) Inhale bid,Instr:use discount coupon Start Date: 02/21/20 Status: Ordered Zoloft 50 mg oral tablet 1.5 tab(s) ( 75 mg ), PO, Daily, # 135 tab(s), 3 Refill(s), Type: Maintenance, Pharmacy: [facility], 1.5 tab(s) po daily Start Date: 07/21/17 Stop Date: 08/29/18 Status: Discontinued Zoloft 50 mg oral tablet = 1.5 tab(s) ( 75 mg ), PO, Daily, # 45 tab(s), 6 Refill(s), Type: Maintenance, Pharmacy: [facility]/pharmacy #0241, 1.5 tab(s) Oral daily,x30 day(s) Start Date: 08/29/18 Stop Date: 03/27/19 Status: Ordered Problem List Condition Effective Dates Status Health Status Inform ant 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
--- OUTSIDE RECORDS SUMMARY | 2023-03-06 05:05 | XMS_ITS | Continuity of Care Document ---
Author Name Unknown Organization [facility] Address [address] [address]- Care Team Providers Care Hatch Boss Name Role Phone Tesfaye Arthur MD Primary Care Physician Encounter 05/13/18 - 05/15/[address] [facility] [address] [place], [place] [address] Encounter Diagnosis Allergic rhinitis due to animals(Discharge Diagnosis) - 05/13/18 Allergic rhinitis due to pollen(Discharge Diagnosis) - 05/13/18 Allergic rhinitis due to dust mite(Discharge Diagnosis) - 05/13/18 Allergy to mold spores(Discharge Diagnosis) - 05/13/18 Allergies, Adverse Reactions, Alerts No Known Medication [...] EACH NOSTRL DAILY, # 32 gm, Pharmacy: [facility], USE 1 SPRAY IN EACH NOSTRL DAILY Start Date: 08/20/14 Stop Date: 08/21/14 Status: Discontinued montelukast 10 mg oral tablet 1 tab(s) ( 10 mg ), PO, qPM, # 90 tab(s), 2 Refill(s), Type: Maintenance, [facility], 1 tab(s) po qpm Start Date: 02/06/18 Status: Ordered montelukast 5 mg oral tablet, chewable 1 tab(s) ( 5 mg ), Chewed, qPM, # 90 tab(s), 1 Refill(s), Type: Maintenance Start Date: 02/10/15 Stop Date: 02/10/15 Status: Discontinued montelukast 5 mg oral tablet, chewable 1 tab(s) ( 5 mg ), Chewed, qPM, # 90 tab(s), 1 Refill(s), Type: Maintenance, Pharmacy: [facility]/pharm[facility]#0241, 1 tab(s) chewed qpm Start Date: [...] 2 EA, 1 Refill(s), Type: Maintenance, Pharmacy: [facility], Please keep on file until [...] A DAY, # 26.1 gm, Pharmacy: [facility], INHALE 2 PUFFS BY MOUTH TWO TIMES [...] rhinitis due to dust mite Discharge Diagnosis 05/13/18 Allergic rhinitis due to animals Discharge Diagnosis 05/13/18 Allergy to mold spores Discharge Diagnosis 05/13/18 Allergic rhinitis due to pollen Discharge Diagnosis 05/13/18 Social History Social History Type Response Smoking Status Never (less than 100 in lifetime); Concerns about tobacco use in household: No 1 entered on: 08/25/17 1father smokes outside no quit info wanted
--- OUTSIDE RECORDS SUMMARY | 2023-03-06 05:05 | XMS_ITS | Continuity of Care Document ---
Author Name Unknown Organization [facility] Address [address] [address]- Care Team Providers Care Surgery Nurse Name Role Phone Tesfaye Arthur MD Primary Care Physician [phone] Encounter 03/24/19 - 03/26/[address] [place], [place] [address] Encounter Diagnosis Allergic rhinitis due to pollen(Discharge Diagnosis) - 03/24/19 Allergic rhinitis due to animals(Discharge Diagnosis) - 03/24/19 Allergic rhinitis due to dust mite(Discharge Diagnosis) - 03/24/19 Allergy to mold spores(Discharge Diagnosis) - 03/24/19 Allergies, Adverse Reactions, Alerts No Known Medication [...] 90 tab(s), 3 Refill(s), Type: Maintenance, [facility] tab([facility] Oral daily Start Date: 01/23/19 Status: Ordered fluticasone 50 mcg/inh nasal spray See Instructions, Instructions: USE 1 SPRAY IN EACH NOSTRL DAILY, # 32 gm, [facility]acy[facility], USE 1 SPRAY IN EACH NOSTRL DAILY Start Date: 08/20/14 Stop Date: 08/21/14 Status: Discontinued fluticasone 50 mcg/inh nasal spray = 1 spray(s), Nasal, daily, Instructions: for allergies, # 16 gm, 3 Refill(s), Type: Maintenance, [facility], 1 spray(s) Nasal daily,Instr:for allergies Start Date: 01/23/19 Status: Ordered montelukast 10 mg oral tablet = 1 tab(s) ( 10 mg ), PO, qPM, # 90 tab(s), 2 Refill(s), Type: Maintenance, [facility] tab(s) Oral qpm Start Date: 01/23/19 Status: Ordered montelukast 5 mg oral tablet, chewable 1 tab(s) ( 5 mg ), Chewed, qPM, # 90 tab(s), 1 Refill(s), Type: Maintenance, [facility], 1 tab(s) chewed qpm Start Date: 06/25/14 [...] 1 EA, 0 Refill(s), Type: Maintenance, Pharmacy: [facility]/pharmacy #0241, Please keep on file until patient request refill., 2 puff(s) Inhale q4-6 hrs Start Date: 01/23/19 Status: Ordered Qvar 80 mcg/inh inhalation aerosol See Instructions, Instructions: INHALE 2 PUFFS BY MOUTH TWO TIMES A DAY, # 26.1 gm, Pharmacy: [facility], INHALE 2 PUFFS BY MOUTH TWO TIMES A DAY Start Date: 06/28/14 Stop Date: 08/21/14 Status: Discontinued Qvar 80 mcg/inh inhalation aerosol 2 puff(s), inh, 1-2x/day, # 1 EA, 3 Refill(s), Type: Maintenance Start Date: 02/10/15 Stop Date: 02/10/15 Status: Discontinued Qvar Redihaler 80 mcg/inh inhalation aerosol 2 puff(s), inh, 1-2x/day, # 1 EA, 5 Refill(s), Type: Maintenance, Pharmacy: [facility]/pharmacy #0241, 2 puff(s) Inhale 1-2x/day Start Date: 01/23/19 Status: Ordered Zoloft 50 mg oral tablet 1.5 tab(s) ( 75 mg ), PO, Daily, # 135 tab(s), 3 Refill(s), Type: Maintenance, Pharmacy: [facility], 1.5 tab(s) po daily Start Date: 07/21/17 Stop Date: 08/29/18 Status: Discontinued Zoloft 50 mg oral tablet = 1.5 tab(s) ( 75 mg ), PO, Daily, # 45 tab(s), 6 Refill(s), Type: Maintenance, Pharmacy: [facility]/pharmacy #0241, 1.5 tab(s) Oral daily,x30 day(s) Start [...] Allergic rhinitis due to pollen Discharge Diagnosis 03/24/19 Allergic rhinitis due to dust mite Discharge Diagnosis 03/24/19 Allergic rhinitis due to animals Discharge Diagnosis 03/24/19 Allergy to mold spores Discharge Diagnosis 03/24/19 Social History Social History Type Response Smoking Status Never (less than 100 in lifetime); Concerns about tobacco use in household: No 1 entered on: 08/25/17 1father smokes outside no quit info wanted
--- OUTSIDE RECORDS SUMMARY | 2023-03-06 05:05 | XMS_ITS | Continuity of Care Document ---
Author Name Unknown Organization [facility] Address [address] [address]- Care Team Providers Care Manager Internship Name Role Phone Tesfaye Arthur MD Primary Care Physician Encounter 06/01/18 - 06/03/[address] [address] Encounter Diagnosis Immunization due(Discharge Diagnosis) - 06/01/18 Well child check(Discharge Diagnosis) - 06/01/18 Body mass index 5th to < 85th percentile, pediatric(Discharge Diagnosis) - 06/01/18 Screening for gonorrhea(Discharge Diagnosis) - 06/01/18 Depression screen(Discharge Diagnosis) - 06/01/18 Attending Physician: Tesfaye Arthur MD Allergies, Adverse Reactions, [...] EACH NOSTRL DAILY, # 32 gm, [facility], USE 1 SPRAY IN EACH NOSTRL DAILY Start Date: 08/20/14 Stop Date: 08/21/14 Status: Discontinued montelukast 10 mg oral tablet 1 tab(s) ( 10 mg ), PO, qPM, # 90 tab(s), 2 Refill(s), Type: Maintenance, [facility], 1 tab(s) po qpm Start Date: 02/06/18 Status: Ordered montelukast 5 mg oral tablet, chewable 1 tab(s) ( 5 mg ), Chewed, qPM, # 90 tab(s), 1 Refill(s), Type: Maintenance Start Date: 02/10/15 Stop Date: 02/10/15 Status: Discontinued montelukast 5 mg oral tablet, chewable 1 tab(s) ( 5 mg ), Chewed, qPM, # 90 tab(s), 1 Refill(s), Type: Maintenance, [facility], 1 tab(s) chewed qpm Start Date: [...] 2 EA, 1 Refill(s), Type: Maintenance, Pharmacy: [facility], Please keep on file until [...] TIMES A DAY, # 26.1 gm, Pharmacy: [facility] [place], INHALE 2 PUFFS BY MOUTH TWO TIMES [...] Effective Dates Health Status Clinical Service Informant Screening for gonorrhea Discharge Diagnosis 06/01/18 Depression screen Discharge Diagnosis 06/01/18 Well child check Discharge Diagnosis 06/01/18 Immunization due Discharge Diagnosis 06/01/18 Body mass index 5th to < 85th percentile, pediatric Discharge Diagnosis 06/01/18 Vital Signs Most recent to oldest [Reference Range]: 1 Height Measured 68 in (06/01/18 11:02 AM) Weight Measured 150.4 lb (06/01/18 11:02 AM) Body Mass Index 22.87 kg/m2 (06/01/18 11:02 AM) BSA 1.81 m2 (06/01/18 11:02 AM) Blood Pressure [90-138/45-84 mmHg] 102/6 2mmHg (06/01/18 11:02 AM) Mean Arterial Pressure 75 mmHg (06/01/18 11:02 AM) Allergies Verified? Yes (06/01/18 11:02 AM) Medication History Verified? Yes (7/19/18 11:02 AM) Social History Social History Type Response Smoking Status Never (less than 100 in lifetime); Concerns about tobacco use in household: No 1 entered on: 08/25/17 1father smokes outside no quit info wanted
--- OUTSIDE RECORDS SUMMARY | 2023-03-06 05:05 | XMS_ITS | Continuity of Care Document ---
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 Diagnosis) - 02/18/18 Allergic rhinitis due to dust mite(Discharge Diagnosis) - 02/18/18 Allergy to mold spores(Discharge Diagnosis) - 02/18/18 02/06/18 - 02/08/18 [facility] [address] [place], [place] [address] Encounter Diagnosis Allergic rhinitis due to animals(Discharge Diagnosis) - 02/06/18 Allergic rhinitis due to pollen(Discharge Diagnosis) - 02/06/18 Allergy to mold spores(Discharge Diagnosis) - 02/06/18 Allergic rhinitis due to dust mite(Discharge Diagnosis) - 02/06/18 Asthma, mild persistent(Discharge Diagnosis) - 02/06/18 Attending Physician: Vicky Flowers PA-C 01/21/18 - 01/23/18 [facility] [address] [facility] [address] [place], [place] [address] Encounter Diagnosis Allergic rhinitis due to animals(Discharge Diagnosis) - 01/21/18 Allergic rhinitis due to pollen(Discharge Diagnosis) - 01/21/18 Allergic rhinitis due to other allergen(Discharge Diagnosis) - 01/21/18 Asthma(Discharge Diagnosis) - 02/06/18 Allergies, Adverse Reactions, Alerts No Known Medication Allergies Assessment and Plan Extracted from: Title:Asthma and allergy shot review Author:Vicky Hwang PA-C Date:02/06/18 Asthma, mild persistent ??AAP reviewed.?? Very stable in the PFT's, still elevated niox - but is improved from??last year. ??She will continue the Qvar 80 2 puffs daily - but given the Redihaler device and reviewed technique. ??Continue singulair??10 mg daily.?? Proair prn. ??Will??try a step down of singulair??this summer and use more seasonally as needed. ?? Allergic rhinitis due to animals ?? Allergic rhinitis due to other allergen ?? Allergic rhinitis due to pollen ??Continue the IT course (started 08/2013):?2004 T/G/R at 0.70 ml, MiteFP/Cat/AP Dog at 0.70 ml, and Mckay Mold AC 0.50 ml every 4-6 wks. ??Will try going close to Q 6 wks now, and see how she does thru the seasons.?Add cetirizine 10 mg daily??as needed ?? F/U 1 year??or sooner PRN. Addendum by Kei Bashir MD on February 08, 2018 10:42:45 AM CDT Reviewed the note. Agree with A&P. Extracted from: Title:Allergy Shots/Asthma Author:Ruthann Bashir MD Date:03/30/17 Asthma, mild persistent AAP reviewed.?? Very stable in the PFT's but elevated niox.?? She will continue the Qvar 80 2 puffs daily and increase singulair??10 mg daily.?? Proair prn. Will consider a step down of singulair??this summer and use more seasonally as needed. ? Allergic rhinitis due to animals ?? Allergic rhinitis due to other allergen ?? Allergic rhinitis due to pollen ??Continue the IT course (started 08/2013):?? 2004 T/G/R at 0.70 ml, MiteFP/Cat/AP Dog at 0.70 ml, and Mckay Mold AC 0.50 ml every 4-6 wks. Add cetirizine 10 mg daily??as needed ?? F/U 1 year Ordered: 18213 spmtry w/vc expiratory paul +-mxml vol vntj (Form/Charge), Instructions: form, Asthma, mild persistent 59261 nitric oxide gas determination (Charge), Quantity: 1, Asthma, mild persistent ?? Extracted from: Title:Asthma & Allergy Review Author:Yusuf Bashir MD Date:06/25/14 Impression and Plan Diagnosis Asthma (ICD9 493.90). Allergy to mold spores (ICD9 995.3). Allergic rhinitis due to pollen (ICD9 477.0). Allergic rhinitis due to other allergen (ICD9 477.8). Allergic rhinitis due to animals (ICD9 477.2). Course: Asthma concerns were discussed and asthma action plan was reviewed in detail. Reviewed proper inhaler technique. Meds: Qvar 80 mcg 2 puffs am and Proair prn. She will stop the singulair after the freeze and monitor over the winter. Allergy symptoms and control were reviewed. Advised to take the meds during the peak pollen season and as needed. antihistamine cetirizine 10 mg daily nasal steroid fluticasone 1 spray per nostril daily and try to wean off after the freeze to determine if shots work well enough alone. Continue IT every 2 wks, then every 4 wks in August 2014 at [facility]. 2004 T/G/R 1:1 at 0.70 ml, Mckay Mold AC 0.50 ml, and Mite FP/Cat/AP dog 0.70 ml. F/U 1 year or sooner if problems. Immunizations Given and Recorded Vaccine Date Status [...] EACH NOSTRL DAILY, # 32 gm, Pharmacy: [facility], USE 1 SPRAY IN EACH NOSTRL DAILY Start Date: 08/20/14 Stop Date: 08/21/14 Status: Discontinued montelukast 10 mg oral tablet 1 tab(s) ( 10 mg ), PO, qPM, # 90 tab(s), 2 Refill(s), Type: Maintenance, Pharmacy: [facility], 1 tab(s) po qpm Start Date: 02/06/18 Status: Ordered montelukast 5 mg oral tablet, chewable 1 tab(s) ( 5 mg ), Chewed, qPM, # 90 tab(s), 1 Refill(s), Type: Maintenance Start Date: 02/10/15 Stop Date: 02/10/15 Status: Discontinued montelukast 5 mg oral tablet, chewable 1 tab(s) ( 5 mg ), Chewed, qPM, # 90 tab(s), 1 Refill(s), Type: Maintenance, Pharmacy: [facility]/pharmacy#[id number], 1 tab(s) chewed qpm Start Date: 06/25/14 [...] 2 EA, 1 Refill(s), Type: Maintenance, Pharmacy: [facility], Please keep on file until [...] TIMES A DAY, # 26.1 gm, Pharmacy: [facility], INHALE 2 PUFFS BY MOUTH TWO TIMES A DAY Start Date: 06/28/14 Stop Date: 08/21/14 Status: Discontinued Qvar Redihaler 80 mcg/inh inhalation aerosol 2 puff(s), inh, 1-2x/day, # 3 EA, 2 Refill(s), Type: Maintenance, Pharmacy: [facility], 2 puff(s) inh 1-2x/day Start Date: 02/06/18 Status: Ordered Zoloft 50 mg oral tablet 1.5 tab(s) ( 75 mg ), PO, Daily, # 135 tab(s), 3 Refill(s), Type: Maintenance, Pharmacy: [facility], 1.5 tab(s) po daily Start [...] Clinical Service Informant Allergic rhinitis due to dust mite Discharge Diagnosis 02/06/18 Allergy to mold spores Discharge Diagnosis 02/06/18 Allergic rhinitis due to animals Discharge Diagnosis 02/06/18 Asthma, mild persistent Discharge Diagnosis 02/06/18 Allergic rhinitis due to other allergen Discharge Diagnosis 12/17/17 Allergic rhinitis due to other allergen Discharge Diagnosis 01/27/16 Allergic rhinitis due to pollen Discharge Diagnosis 01/27/16 Allergic rhinitis due to animals Discharge Diagnosis 01/27/16 Allergic rhinitis due to pollen Discharge Diagnosis 02/06/18 Allergic rhinitis due to pollen Discharge Diagnosis 11/17/16 Asthma Discharge Diagnosis 02/06/18 Allergic rhinitis due to other allergen Discharge Diagnosis 11/17/16 Allergic rhinitis due to animals Discharge Diagnosis 11/17/16 Allergy to mold spores Discharge Diagnosis 04/04/18 Allergic rhinitis due to pollen Discharge Diagnosis 01/28/15 Allergic rhinitis due to animals Discharge Diagnosis 01/28/15 Allergic rhinitis due to other allergen Discharge Diagnosis 01/28/15 Allergic rhinitis due to pollen Discharge Diagnosis 03/30/17 Allergic rhinitis due to animals Discharge Diagnosis 03/30/17 Allergic rhinitis due to other allergen Discharge Diagnosis 03/30/17 Depression screen Discharge Diagnosis 06/07/17 Immunization due Discharge Diagnosis 06/07/17 Allergic rhinitis due to pollen Discharge Diagnosis 05/19/16 Allergic rhinitis due to other allergen Discharge Diagnosis 05/19/16 Allergic rhinitis due to animals Discharge Diagnosis 05/19/16 Allergy to mold spores Discharge Diagnosis 02/18/18 Allergic rhinitis due to animals Discharge Diagnosis 01/01/17 Allergic rhinitis due to pollen Discharge Diagnosis 01/01/17 Allergic rhinitis due to other allergen Discharge Diagnosis 01/01/17 Allergic rhinitis due to dust mite Discharge Diagnosis 04/04/18 Allergic rhinitis due to animals Discharge Diagnosis 04/04/18 Allergic rhinitis due to pollen Discharge Diagnosis 08/20/17 Allergic rhinitis due to pollen Discharge Diagnosis 01/29/17 Allergic rhinitis due to animals Discharge Diagnosis 01/29/17 Allergic rhinitis due to other allergen Discharge Diagnosis 01/29/17 Asthma, mild persistent Discharge Diagnosis 03/30/17 Allergic rhinitis due to other allergen Discharge Diagnosis 04/27/16 Allergic rhinitis due to animals Discharge Diagnosis 04/27/16 Allergic rhinitis due to pollen Discharge Diagnosis 04/27/16 Allergic rhinitis due to other allergen Discharge Diagnosis 07/15/16 Allergic rhinitis due to animals Discharge Diagnosis 07/15/16 Allergic rhinitis due to pollen Discharge Diagnosis 07/15/16 Allergic rhinitis due to animals Discharge Diagnosis 01/21/18 Allergic rhinitis due to pollen Discharge Diagnosis 01/21/18 Allergic rhinitis due to animals Discharge Diagnosis 02/18/18 Allergic rhinitis due to dust mite Discharge Diagnosis 02/18/18 Allergic rhinitis due to pollen Discharge Diagnosis 02/18/18 Allergic rhinitis due to pollen Discharge Diagnosis 10/21/16 Allergic rhinitis due to animals Discharge Diagnosis 10/21/16 Allergic rhinitis due to other allergen Discharge Diagnosis 10/21/16 Allergic rhinitis due to pollen Discharge Diagnosis 04/08/16 Allergic rhinitis due to animals Discharge Diagnosis 04/08/16 Allergic rhinitis due to other allergen Discharge Diagnosis 04/08/16 Allergic rhinitis due to animals Discharge Diagnosis 06/25/17 Allergic rhinitis due to other allergen Discharge Diagnosis 06/25/17 Allergic rhinitis due to pollen Discharge Diagnosis 06/25/17 Allergy to mold spores Discharge Diagnosis 10/15/17 Allergic rhinitis due to animals Discharge Diagnosis 04/30/17 Allergic rhinitis due to other allergen Discharge Diagnosis 04/30/17 Allergic rhinitis due to pollen Discharge Diagnosis 04/30/17 Allergic rhinitis due to pollen Discharge Diagnosis 10/15/17 Allergic rhinitis due to pollen Discharge Diagnosis 03/18/18 Allergic rhinitis due to dust mite Discharge Diagnosis 03/18/18 Allergy to mold spores Discharge Diagnosis 03/18/18 Allergic rhinitis due to animals Discharge Diagnosis 03/18/18 Allergic rhinitis due to pollen Discharge Diagnosis 11/05/17 Allergic rhinitis due to animals Discharge Diagnosis 11/05/17 Allergic rhinitis due to pollen Discharge Diagnosis 11/10/16 Allergic rhinitis due to animals Discharge Diagnosis 11/10/16 Allergic rhinitis due to other allergen Discharge Diagnosis 11/10/16 Allergic rhinitis due to other allergen Discharge Diagnosis 11/20/16 Allergic rhinitis due to pollen Discharge Diagnosis 11/20/16 Allergic rhinitis due to animals Discharge Diagnosis 11/20/16 Allergic rhinitis due to animals Discharge Diagnosis 05/08/14 Non-Specified Allergic rhinitis due to other allergen Discharge Diagnosis 05/08/14 Non-Specified Allergic rhinitis due to pollen Discharge Diagnosis 05/08/14 Non-Specified Allergic rhinitis due to pollen Discharge Diagnosis 12/04/16 Allergic rhinitis due to animals Discharge Diagnosis 12/04/16 Allergic rhinitis due to other allergen Discharge Diagnosis 12/04/16 Allergic rhinitis due to pollen Discharge Diagnosis 06/16/16 Allergic rhinitis due to other allergen Discharge Diagnosis 06/16/16 Allergic rhinitis due to animals Discharge Diagnosis 06/16/16 Allergic rhinitis due to animals Discharge Diagnosis 08/20/17 Allergic rhinitis due to pollen Discharge Diagnosis 10/11/17 Allergic rhinitis due to pollen Discharge Diagnosis 04/04/18 Allergy to mold spores Discharge Diagnosis 11/19/17 Allergic rhinitis due to pollen Discharge Diagnosis 11/19/17 Social anxiety disorder Discharge Diagnosis 06/07/17 Non-Specified Allergic rhinitis due to animals Discharge Diagnosis 10/15/17 Allergic rhinitis due to pollen Discharge Diagnosis 06/25/14 Non-Specified Asthma Discharge Diagnosis 06/25/14 Non-Specified Allergic rhinitis due to animals Discharge Diagnosis 06/25/14 Non-Specified Allergic rhinitis due to other allergen Discharge Diagnosis 06/25/14 Non-Specified Allergic rhinitis due to other allergen Discharge Diagnosis 01/21/18 Allergic rhinitis due to other allergen Discharge Diagnosis 03/11/16 Allergic rhinitis due to animals Discharge Diagnosis 03/11/16 Allergic rhinitis due to pollen Discharge Diagnosis 03/11/16 Allergic rhinitis due to other allergen Discharge Diagnosis 11/19/17 Allergic rhinitis due to animals Discharge Diagnosis 11/19/17 Allergic rhinitis due to other allergen Discharge Diagnosis 04/16/17 Allergic rhinitis due to animals Discharge Diagnosis 04/16/17 Allergic rhinitis due to pollen Discharge Diagnosis 04/16/17 Allergic rhinitis due to other allergen Discharge Diagnosis 08/20/17 Allergic rhinitis due to animals Discharge Diagnosis 10/11/17 Allergic rhinitis due to animals Discharge Diagnosis 09/17/17 Allergic rhinitis due to other allergen Discharge Diagnosis 09/17/17 Allergic rhinitis due to pollen Discharge Diagnosis 09/17/17 Embedded teeth with impacted teeth Discharge Diagnosis 08/25/17 Non-Specified Allergic rhinitis due to pollen Discharge Diagnosis 12/04/15 Preoperative examination Discharge Diagnosis 08/25/17 Non-Specified Allergic rhinitis due to animals Discharge Diagnosis 12/04/15 Allergic rhinitis due to other allergen Discharge Diagnosis 12/04/15 Allergic rhinitis due to pollen Discharge Diagnosis 02/10/15 Non-Specified Asthma Discharge Diagnosis 02/10/15 Non-Specified Allergic rhinitis due to other allergen Discharge Diagnosis 02/10/15 Non-Specified Allergic rhinitis due to animals Discharge Diagnosis 02/10/15 Non-Specified Allergic rhinitis due to animals Discharge Diagnosis 05/06/16 Allergic rhinitis due to other allergen Discharge Diagnosis 05/06/16 Allergic rhinitis due to pollen Discharge Diagnosis 05/06/16 Allergic rhinitis due to pollen Discharge Diagnosis 11/11/15 Allergic rhinitis due to other allergen Discharge Diagnosis 11/11/15 Allergic rhinitis due to animals Discharge Diagnosis 11/11/15 Allergic rhinitis due to animals Discharge Diagnosis 12/17/17 Immunization due Discharge Diagnosis 08/25/17 Allergic rhinitis due to pollen Discharge Diagnosis 02/19/16 Allergic rhinitis due to animals Discharge Diagnosis 02/19/16 Allergic rhinitis due to other allergen Discharge Diagnosis 02/19/16 Allergic rhinitis due to pollen Discharge Diagnosis 05/28/17 Allergic rhinitis due to animals Discharge Diagnosis 05/28/17 Allergic rhinitis due to other allergen Discharge Diagnosis 05/28/17 Allergy to mold spores Discharge Diagnosis 12/17/17 Allergic rhinitis due to pollen Discharge Diagnosis 12/17/17 Social anxiety disorder Discharge Diagnosis 04/29/17 Non-Specified Allergic rhinitis due to other allergen Discharge Diagnosis 09/16/16 Allergic rhinitis due to animals Discharge Diagnosis 09/16/16 Allergic rhinitis due to pollen Discharge Diagnosis 09/16/16 [facility] (well child check) Discharge Diagnosis 04/29/17 Immunization due Discharge Diagnosis 04/29/17 Body mass index 5th to < 85th percentile, pediatric Discharge Diagnosis 04/29/17 Depression screen Discharge Diagnosis 04/29/17 Allergic rhinitis due to other allergen Discharge Diagnosis 11/05/17 Allergic rhinitis due to animals Discharge Diagnosis 12/18/16 Allergic rhinitis due to other allergen Discharge Diagnosis 12/18/16 Allergic rhinitis due to pollen Discharge Diagnosis 12/18/16 Allergic rhinitis due to pollen Discharge Diagnosis 01/01/16 Allergic rhinitis due to other allergen Discharge Diagnosis 01/01/16 Allergic rhinitis due to animals Discharge Diagnosis 01/01/16 Allergic rhinitis due to dust mite Discharge Diagnosis 10/15/17 Allergic rhinitis due to animals Discharge Diagnosis 08/12/16 Allergic rhinitis due to pollen Discharge Diagnosis 08/12/16 Allergic rhinitis due to other allergen Discharge Diagnosis 08/12/16 Asthma, mild persistent Discharge Diagnosis 01/27/16 Allergic rhinitis due to animals Discharge Diagnosis 02/26/17 Allergic rhinitis due to other allergen Discharge Diagnosis 02/26/17 Allergic rhinitis due to pollen Discharge Diagnosis 02/26/17 Allergy to mold spores Discharge Diagnosis 11/05/17 Allergic rhinitis due to other allergen Discharge Diagnosis 07/23/17 Allergic rhinitis due to animals Discharge Diagnosis 07/23/17 Allergic rhinitis due to pollen Discharge Diagnosis 07/23/17 Allergic rhinitis due to pollen Discharge Diagnosis 11/20/15 Allergic rhinitis due to animals Discharge Diagnosis 11/20/15 Allergic rhinitis due to other allergen Discharge Diagnosis 11/20/15 Vital Signs Most recent to oldest [Reference Range]: 1 2 3 Height Measured 68.5 in (02/06/18 8:26 AM) 68.5 in (08/25/17 8:17 AM) 68.25 in (06/07/17 9:52 AM) Weight Measured 141.8 lb (02/06/18: AM) 134.8 lb (08/25/17: AM) 141.8 lb (06/07/17 9:52 AM) Weight 8.56 lb (10/30/15 11:30 AM) Body Mass Index 21.24 kg/m2 (02/06/18: AM) 20.2 kg/m2 (08/25/17: AM) 21.4 kg/m2 (06/07/17 9:52 AM) BSA 1.76 m2 (02/06/18: AM) 1.72 m2 (08/25/17: AM) 1.76 m2 (06/07/17 9:52 AM) Temperature Temporal [96.8-100.4 DegF] 99 DegF (08/25/17: AM) 98.2 DegF (10/30/15 11:30 AM) Blood Pressure [90-138/45-84 mmHg] 102/69mmHg (02/06/18 8:26 AM) 104/65mmHg (08/25/17 8: AM) 99/63mmHg (06/07/17 9:52 AM) Mean Arterial Pressure 80 mmHg (02/06/18: AM) 78 mmHg (08/25/17: AM) 75 mmHg (06/07/17 9:52 AM) Peripheral Pulse Rate [55-90 bpm] 60 bpm (02/06/18 8: AM) 68 bpm (08/25/17: AM) 56 bpm (04/29/17 2:19 PM) Oxygen Saturation [94-100 %] 98 % (10/30/15 11:30 AM) Allergies Verified? Yes (08/25/17: AM) Yes (06/07/17 9:52 AM) Medication History Verified? Yes (10/12/17 8:17 AM) Yes (06/07/17 9:52 AM) Social History Social History Type Response Smoking Status Never (less than 100 in lifetime); Concerns about tobacco use in household: No 1 entered on: 08/25/17 1father smokes outside no quit info wanted
--- OUTSIDE RECORDS SUMMARY | 2023-03-06 05:05 | XMS_ITS | Continuity of Care Document ---
Author Name Unknown Organization [facility] Address [facility] [address] [place] [address]- Care Team Providers Care Electronic Publications Specialist Name Role Phone Tesfaye Arthur MD Primary Care Physician Encounter 01/23/19 - 01/25/[address] [address] Encounter Diagnosis Asthma, mild persistent(Discharge Diagnosis) - 01/23/19 Allergic rhinitis due to pollen(Discharge Diagnosis) - 01/23/19 Allergic rhinitis due to dust mite(Discharge Diagnosis) - 01/23/19 Allergic rhinitis due to animals(Discharge Diagnosis) - 01/23/19 Allergy to mold spores(Discharge Diagnosis) - 01/23/19 Attending Physician: Yusuf Bashir MD Allergies, Adverse Reactions, Alerts No Known Medication Allergies Assessment and Plan Extracted from: Title:Asthma/Allergy Author:Yusuf Bashir MD te:01/23/19 Asthma, mild persistent ??AAP reviewed.?? Very stable in the PFT's. ??She will continue the Qvar 80 2 puffs daily. ??Continue singulair??10 mg daily (maybe step off in winter).?? Proair prn. ?? Allergic rhinitis due to animals ?? Allergic rhinitis due to other allergen ?? Allergic rhinitis due to pollen ??Continue the IT course (started 08/2013):?? cutback a little??for??Karoline T/G/R at 0.60 ml, MiteFP/Cat/AP Dog at 0.60 ml, and Mckay Mold AC 0.40 ml every 6 wks.?? Plan to discontinue in Dec 2019---??see how she does off IT before going to college. Add cetirizine 10 mg daily??and fluticasone nasal??as needed ?? F/U 1 year??or sooner PRN. ?? >25 minute visit with >50% in counseling/coordination of care.?Patient/parent's questions and concerns addressed in detail. Immunizations Given and Recorded Vaccine Date Status [...] Recorded Hep B 02 Recorded Hib (HbOC) 6/24/03 Recorded Hib (HbOC) 02 Recorded Hib (HbOC) [...] 90 tab(s), 3 Refill(s), Type: Maintenance, Pharmacy: [facility]/pharmacy #[id number], 1 tab(s) Oral daily Start Date: 01/23/19 Status: Ordered fluticasone 50 mcg/inh nasal spray See Instructions, Instructions: USE 1 SPRAY IN EACH NOSTRL DAILY, # 32 gm, Pharmacy: [facility], USE 1 SPRAY IN EACH NOSTRL DAILY Start Date: 08/20/14 Stop Date: 08/21/14 Status: Discontinued fluticasone 50 mcg/inh nasal spray = 1 spray(s), Nasal, daily, Instructions: for allergies, # 16 gm, 3 Refill(s), Type: Maintenance, Pharmacy: [facility]/pharmacy #[id number], 1 spray(s) Nasal daily,Instr:for allergies Start Date: 01/23/19 Status: Ordered montelukast 10 mg oral tablet = 1 tab(s) ( 10 mg ), PO, qPM, # 90 tab(s), 2 Refill(s), Type: Maintenance, Pharmacy: [facility]/pharmacy #[id number], 1 tab(s) Oral qpm Start Date: 01/23/19 Status: Ordered montelukast 5 mg oral tablet, chewable 1 tab(s) ( 5 mg ), Chewed, qPM, # 90 tab(s), 1 Refill(s), Type: Maintenance Start Date: 02/10/15 Stop Date: 02/10/15 Status: Discontinued montelukast 5 mg oral tablet, chewable 1 tab(s) ( 5 mg ), Chewed, qPM, # 90 tab(s), 1 Refill(s), Type: Maintenance, Pharmacy: [facility]/pharmacy#[id number], 1 tab(s) chewed qpm Start Date: 06/25/14 Stop Date: 08/21/14 Status: Discontinued ProAir HFA 90 mcg/inh inhalation aerosol 2 puff(s), inh, q4-6 hrs, # 1 EA, 0 Refill(s), Type: Maintenance, Pharmacy: [facility]/pharmacy #[id number], Please keep on file until [...] TIMES A DAY, # 26.1 gm, Pharmacy: [facility], INHALE 2 PUFFS BY MOUTH TWO TIMES A DAY Start Date: 06/28/14 Stop Date: 08/21/14 Status: Discontinued Qvar Redihaler 80 mcg/inh inhalation aerosol 2 puff(s), inh, 1-2x/day, # 1 EA, 5 Refill(s), Type: Maintenance, Pharmacy: [facility]/pharmacy #[id number], 2 puff(s) Inhale 1-2x/day Start Date: [...] 45 tab(s), 6 Refill(s), Type: Maintenance, Pharmacy: [facility]/pharmacy #[id number], 1.5 tab(s) Oral daily,x30 day(s) Start [...] Allergic rhinitis due to pollen Discharge Diagnosis 01/23/19 Allergy to mold spores Discharge Diagnosis 01/23/19 Allergic rhinitis due to dust mite Discharge Diagnosis 01/23/19 Allergic rhinitis due to animals Discharge Diagnosis 01/23/19 Asthma, mild persistent Discharge Diagnosis 01/23/19 Vital Signs Most recent to oldest [Reference Range]: 1 Height Measured 68.5 in (01/23/19 9:38 AM) Weight Measured 156 lb (01/23/19 9:38 AM) Body Mass Index 23.37 kg/m2 (01/23/19 9:38 AM) BSA 1.85 m2 (01/23/19 9:38 AM) Blood Pressure [90-138/45-84 mmHg] 111/7 1mmHg (01/23/19 9:38 AM) Mean Arterial Pressure 84 mmHg (01/23/19 9:38 AM) Peripheral Pulse Rate [55-90 bpm] 65 bpm (01/23/19 9:38 AM) Social History Social History Type Response Smoking Status Never (less than 100 in lifetime); Concerns about tobacco use in household: No 1 entered on: 08/25/17 1father smokes outside no quit info wanted
--- OUTSIDE RECORDS SUMMARY | 2023-03-06 05:05 | XMS_ITS | Continuity of Care Document ---
Author Name Unknown Organization [facility] Address [address] [address]- Care Team Providers Care Safety Supervisor Name Role Phone Tesfaye Arthur MD Primary Care Physician Encounter 12/30/18 - 01/01/[address] 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) - 12/30/18 Allergic rhinitis due to dust mite(Discharge Diagnosis) - 12/30/18 Allergic rhinitis due to pollen(Discharge Diagnosis) - 12/30/18 Allergy to mold spores(Discharge Diagnosis) - 12/30/18 Allergies, Adverse Reactions, Alerts No Known Medication [...] gm, Pharmacy: [facility] Order [facility]acy, USE 1 SPRAY IN EACH NOSTRL DAILY Start Date: 08/20/14 Stop Date: 08/21/14 Status: Discontinued montelukast 10 mg oral tablet = 1 tab(s) ( 10 mg ), PO, qPM, # 90 tab(s), 1 Refill(s), Type: Maintenance, Pharmacy: [facility]/pharmacy #[id number], 1 tab(s) Oral qpm Start Date: 08/29/18 Status: Ordered montelukast 5 mg oral tablet, chewable 1 tab(s) ( 5 mg ), Chewed, qPM, # 90 tab(s), 1 Refill(s), Type: Maintenance Start Date: 02/10/15 Stop Date: 02/10/15 Status: Discontinued montelukast 5 mg oral tablet, chewable 1 tab(s) ( 5 mg ), Chewed, qPM, # 90 tab(s), 1 Refill(s), Type: Maintenance, Pharmacy: [facility]/pharmacy#0241, 1 tab(s) chewed qpm Start [...] 1 EA, 1 Refill(s), Type: Maintenance, Pharmacy: [facility]/pharmacy #[id number], Please keep on file [...] TIMES A DAY, # 26.1 gm, Pharmacy: [facility] [place], INHALE 2 PUFFS BY MOUTH TWO TIMES A DAY Start Date: 06/28/14 Stop Date: 08/21/14 Status: Discontinued Qvar Redihaler 80 mcg/inh inhalation aerosol 2 puff(s), inh, 1-2x/day, # 3 EA, 2 Refill(s), Type: Maintenance, [facility]acy: [facility], 2 puff(s) inh 1-2x/day Start Date: 02/06/18 Status: Ordered Zoloft 50 mg oral tablet 1.5 tab(s) ( 75 mg ), PO, Daily, # 135 tab(s), 3 Refill(s), Type: Maintenance, Pharmacy: [facility], 1.5 tab(s) po daily Start Date: 07/21/17 Stop Date: 08/29/18 Status: Discontinued Zoloft 50 mg oral tablet = 1.5 tab(s) ( 75 mg ), PO, Daily, # 45 tab(s), 6 Refill(s), Type: Maintenance, Pharmacy: [facility]/pharmacy #[id number], 1.5 tab(s) Oral daily,x30 day(s) [...] rhinitis due to dust mite Discharge Diagnosis 12/30/18 Allergic rhinitis due to pollen Discharge Diagnosis 12/30/18 Allergy to mold spores Discharge Diagnosis 12/30/18 Allergic rhinitis due to animals Discharge Diagnosis 12/30/18 Social History Social History Type Response Smoking Status Never (less than 100 in lifetime); Concerns about tobacco use in household: No 1 entered on: 08/25/17 1father smokes outside no quit info wanted
--- OUTSIDE RECORDS SUMMARY | 2023-03-06 05:05 | XMS_ITS | Continuity of Care Document ---
Author Name Unknown Organization [facility] Address [address] [address]- Care Team Providers Care Automobile Mechanic Apprentice Name Role Phone Tesfaye Arthur MD Primary Care Physician Encounter 09/09/18 - 09/11/[address] 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) - 09/09/18 Allergic rhinitis due to dust mite(Discharge Diagnosis) - 09/09/18 Allergy to mold spores(Discharge Diagnosis) - 09/09/18 Allergies, Adverse Reactions, Alerts No Known Medication [...] DAILY, # 32 gm, Pharmacy: [facility] Order [facility]acy, USE 1 SPRAY IN EACH NOSTRL DAILY Start Date: 08/20/14 Stop Date: 08/21/14 Status: Discontinued montelukast 10 mg oral tablet = 1 tab(s) ( 10 mg ), PO, qPM, # 90 tab(s), 1 Refill(s), Type: Maintenance, Pharmacy: [facility]/pharmacy #[id number], 1 tab(s) Oral qpm Start Date: 08/29/18 Status: Ordered montelukast 5 mg oral tablet, chewable 1 tab(s) ( 5 mg ), Chewed, qPM, # 90 tab(s), 1 Refill(s), Type: Maintenance Start Date: 02/10/15 Stop Date: 02/10/15 Status: Discontinued montelukast 5 mg oral tablet, chewable 1 tab(s) ( 5 mg ), Chewed, qPM, # 90 tab(s), 1 Refill(s), Type: Maintenance, Pharmacy: [facility]/pharmacy#0241, 1 tab(s) chewed qpm Start Date: [...] 1 EA, 1 Refill(s), Type: Maintenance, Pharmacy: [facility]/pharmacy #0241, Please keep on file until [...] TIMES A DAY, # 26.1 gm, Pharmacy: [facility] [place], INHALE 2 PUFFS BY MOUTH TWO TIMES A DAY Start Date: 06/28/14 Stop Date: 08/21/14 Status: Discontinued Qvar Redihaler 80 mcg/inh inhalation aerosol 2 puff(s), inh, 1-2x/day, # 3 EA, 2 Refill(s), Type: Maintenance, [facility]acy: [facility], 2 puff(s) inh 1-2x/day Start Date: 02/06/18 Status: Ordered Zoloft 50 mg oral tablet 1.5 tab(s) ( 75 mg ), PO, Daily, # 135 tab(s), 3 Refill(s), Type: Maintenance, Pharmacy: [facility], 1.5 tab(s) po daily Start Date: 07/21/17 Stop Date: 08/29/18 Status: Discontinued Zoloft 50 mg oral tablet = 1.5 tab(s) ( 75 mg ), PO, Daily, # 45 tab(s), 6 Refill(s), Type: Maintenance, Pharmacy: [facility]/pharmacy #0241, 1.5 tab(s) Oral daily,x30 day(s) [...] Informant Allergy to mold spores Discharge Diagnosis 09/09/18 Allergic rhinitis due to animals Discharge Diagnosis 09/09/18 Allergic rhinitis due to dust mite Discharge Diagnosis 09/09/18 Allergic rhinitis due to pollen Discharge Diagnosis 09/09/18 Social History Social History Type Response Smoking Status Never (less than 100 in lifetime); Concerns about tobacco use in household: No 1 entered on: 08/25/17 1father smokes outside no quit info wanted
--- OUTSIDE RECORDS SUMMARY | 2023-03-06 05:05 | XMS_ITS | Continuity of Care Document ---
Author Name Unknown Organization [facility] Address [address] [address]- Care Team Providers Care Legal Billing Analyst Name Role Phone Tesfaye Arthur MD Primary Care Physician [phone] Encounter 11/25/18 - 11/27/[address] 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) - 11/25/18 Allergic rhinitis due to dust mite(Discharge Diagnosis) - 11/25/18 Allergy to mold spores(Discharge Diagnosis) - 11/25/18 Allergies, Adverse Reactions, Alerts No Known Medication [...] DAILY, # 32 gm, Pharmacy: [facility] Order [facility]acy, USE 1 SPRAY IN EACH NOSTRL DAILY Start Date: 08/20/14 Stop Date: 08/21/14 Status: Discontinued montelukast 10 mg oral tablet = 1 tab(s) ( 10 mg ), PO, qPM, # 90 tab(s), 1 Refill(s), Type: Maintenance, Pharmacy: [facility]/pharm[facility] #[id number], 1 tab(s) Oral qpm Start [...] EA, 1 Refill(s), Type: Maintenance, Pharmacy: [facility]/pharmacy [...] TIMES A DAY, # 26.1 gm, Pharmacy: [facility] [place], INHALE 2 PUFFS BY MOUTH TWO TIMES A DAY Start Date: 06/28/14 Stop Date: 08/21/14 Status: Discontinued Qvar Redihaler 80 mcg/inh inhalation aerosol 2 puff(s), inh, 1-2x/day, # 3 EA, 2 Refill(s), Type: Maintenance, [facility]acy: [facility], 2 puff(s) inh 1-2x/day Start Date: 02/06/18 Status: Ordered Zoloft 50 mg oral tablet 1.5 tab(s) ( 75 mg ), PO, Daily, # 135 tab(s), 3 Refill(s), Type: Maintenance, [facility]acy: [facility], 1.5 tab(s) po daily Start [...] rhinitis due to dust mite Discharge Diagnosis 11/25/18 Allergic rhinitis due to pollen Discharge Diagnosis 11/25/18 Allergy to mold spores Discharge Diagnosis 11/25/18 Allergic rhinitis due to animals Discharge Diagnosis 11/25/18 Social History Social History Type Response Smoking Status Never (less than 100 in lifetime); Concerns about tobacco use in household: No 1 entered on: 08/25/17 1father smokes outside no quit info wanted
--- OUTSIDE RECORDS SUMMARY | 2023-03-06 05:05 | XMS_ITS | Continuity of Care Document ---
Author Name Unknown Organization [facility] Address [address] [address]- Care Team Providers Care Content Designer Name Role Phone Tesfaye Arthur MD Primary Care Physician [phone] Encounter 09/22/19 - 09/24/[address] [facility] 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) - 09/22/19 Allergic rhinitis due to dust mite(Discharge Diagnosis) - 09/22/19 Allergy to mold spores(Discharge Diagnosis) - 09/22/19 Allergies, Adverse Reactions, Alerts No Known Medication [...] 90 tab(s), 1 Refill(s), Type: Maintenance, Pharmacy: [facility]/pharmacy#0241, 1 tab(s) chewed qpm Start Date: [...] 1 EA, 0 Refill(s), Type: Maintenance, Pharmacy: [facility]/pharmacy #0241, Please keep on file until patient request refill., 2 puff(s) Inhale q4-6 hrs Start Date: 01/23/19 Status: Ordered Qvar 80 mcg/inh inhalation aerosol See Instructions, Instructions: INHALE 2 PUFFS BY MOUTH TWO TIMES A DAY, # 26.1 gm, [facility], INHALE 2 PUFFS BY MOUTH TWO TIMES A DAY Start Date: 06/28/14 Stop Date: 08/21/14 Status: Discontinued Qvar 80 mcg/inh inhalation aerosol 2 puff(s), inh, 1-2x/day, # 1 EA, 3 Refill(s), Type: Maintenance Start Date: 02/10/15 Stop Date: 02/10/15 Status: Discontinued Qvar Redihaler 80 mcg/inh inhalation aerosol 2 puff(s), inh, 1-2x/day, # 1 EA, 5 Refill(s), Type: Maintenance, Pharmacy: [facility]/pharmacy #0241, 2 puff(s) Inhale 1-2x/day Start Date: 01/23/19 Status: Ordered Zoloft 50 mg oral tablet 1.5 tab(s) ( 75 mg ), PO, Daily, # 135 tab(s), 3 Refill(s), Type: Maintenance, Pharmacy: [facility], 1.5 tab(s) po daily Start Date: 07/21/17 Stop Date: 08/29/18 Status: Discontinued Zoloft 50 mg oral tablet = 1.5 tab(s) ( 75 mg ), PO, Daily, # 45 tab(s), 6 Refill(s), Type: Maintenance, Pharmacy: [facility]/pharmacy #0241, 1.5 tab(s) Oral daily,x30 day(s) [...] Allergic rhinitis due to pollen Discharge Diagnosis 09/22/19 Allergic rhinitis due to animals Discharge Diagnosis 09/22/19 Allergic rhinitis due to dust mite Discharge Diagnosis 09/22/19 Allergy to mold spores Discharge Diagnosis 09/22/19 Social History Social History Type Response Smoking Status Never (less than 100 in lifetime); Concerns about tobacco use in household: No 1 entered on: 08/25/17 1father smokes outside no quit info wanted
--- OUTSIDE RECORDS SUMMARY | 2023-03-06 05:06 | XMS_ITS | Continuity of Care Document ---
Author Name Unknown Organization [facility] Address [address] [address]- Care Team Providers Care Claim Trainee Name Role Phone Tesfaye Arthur MD Primary Care Physician Encounter 04/29/18 - 05/01/[address] [facility] [address] [place], [place] [address] Encounter Diagnosis Allergic rhinitis due to animals(Discharge [...] NOSTRL DAILY, # 32 gm, Pharmacy: [facility], USE 1 SPRAY IN EACH NOSTRL DAILY Start Date: 08/20/14 Stop Date: 08/21/14 Status: Discontinued montelukast 10 mg oral tablet 1 tab(s) ( 10 mg ), PO, qPM, # 90 tab(s), 2 Refill(s), Type: Maintenance, [facility], 1 tab(s) po qpm Start Date: 02/06/18 Status: Ordered montelukast 5 mg oral tablet, chewable 1 tab(s) ( 5 mg ), Chewed, qPM, # 90 tab(s), 1 Refill(s), Type: Maintenance Start Date: 02/10/15 Stop Date: 02/10/15 Status: Discontinued montelukast 5 mg oral tablet, chewable 1 tab(s) ( 5 mg ), Chewed, qPM, # 90 tab(s), 1 Refill(s), Type: Maintenance, Pharmacy: [facility]/pharmacy#0241, 1 tab(s) chewed qpm Start [...] 2 EA, 1 Refill(s), Type: Maintenance, Pharmacy: [facility], Please keep on file until [...] A DAY, # 26.1 gm, Pharmacy: [facility] [place], INHALE 2 PUFFS BY MOUTH TWO [...]
--- OUTSIDE RECORDS SUMMARY | 2023-03-06 05:06 | XMS_ITS | Continuity of Care Document ---
Author Name Unknown Organization [facility] Address [address] [address]- Care Team Providers Care Graduate Intern Name Role Phone Tesfaye Arthur MD Primary Care Physician Encounter 04/13/19 - 04/15/[address] [address] Encounter Diagnosis Immunization due(Discharge Diagnosis) - 04/13/19 Allergies, Adverse Reactions, Alerts No Known Medication [...] 90 tab(s), 3 Refill(s), Type: Maintenance, Pharmacy: [facility]/pharmacy #0241, 1 tab(s) Oral daily Start Date: 01/23/19 Status: Ordered fluticasone 50 mcg/inh nasal spray See Instructions, Instructions: USE 1 SPRAY IN EACH NOSTRL DAILY, # 32 gm, Pharmacy: [facility] Order [facility]acy, USE 1 SPRAY IN EACH NOSTRL DAILY Start Date: 08/20/14 Stop Date: 08/21/14 Status: Discontinued fluticasone 50 mcg/inh nasal spray = 1 spray(s), Nasal, daily, Instructions: for allergies, # 16 gm, 3 Refill(s), Type: Maintenance, Pharmacy: [facility]/pharmacy #0241, 1 spray(s) Nasal daily,Instr:for allergies Start Date: 01/23/19 Status: Ordered montelukast 10 mg oral tablet = 1 tab(s) ( 10 mg ), PO, qPM, # 90 tab(s), 2 Refill(s), Type: Maintenance, Pharmacy: [facility]/pharmacy #0241, 1 tab(s) Oral qpm Start Date: 01/23/19 Status: Ordered montelukast 5 mg oral tablet, chewable 1 tab(s) ( 5 mg ), Chewed, qPM, # 90 tab(s), 1 Refill(s), Type: Maintenance, [facility], 1 tab(s) chewed qpm Start Date: 06/25/14 [...] 1 EA, 0 Refill(s), Type: Maintenance, Pharmacy: [facility]/pharmacy #0241, Please keep on file until patient request refill., 2 puff(s) Inhale q4-6 hrs Start Date: 01/23/19 Status: Ordered Qvar 80 mcg/inh inhalation aerosol See Instructions, Instructions: INHALE 2 PUFFS BY MOUTH TWO TIMES A DAY, # 26.1 gm, Pharmacy: [facility] [place], INHALE 2 PUFFS BY MOUTH TWO TIMES A DAY Start Date: 06/28/14 Stop Date: 08/21/14 Status: Discontinued Qvar 80 mcg/inh inhalation aerosol 2 puff(s), inh, 1-2x/day, # 1 EA, 3 Refill(s), Type: Maintenance Start Date: 02/10/15 Stop Date: 02/10/15 Status: Discontinued Qvar Redihaler 80 mcg/inh inhalation aerosol 2 puff(s), inh, 1-2x/day, # 1 EA, 5 Refill(s), Type: Maintenance, Pharmacy: [facility]/pharmacy #0241, 2 puff(s) Inhale 1-2x/day Start Date: 01/23/19 Status: Ordered Zoloft 50 mg oral tablet 1.5 tab(s) ( 75 mg ), PO, Daily, # 135 tab(s), 3 Refill(s), Type: Maintenance, [facility]acy: [facility], 1.5 tab(s) po daily Start [...] Effective Dates Health Status Clinical Service Informant Immunization due Discharge Diagnosis 04/13/19 Social History Social History Type Response Smoking Status Never (less than 100 in lifetime); Concerns about tobacco use in household: No 1 entered on: 08/25/17 1father smokes outside no quit info wanted
--- OUTSIDE RECORDS SUMMARY | 2023-03-06 05:06 | XMS_ITS | Continuity of Care Document ---
Author Name Unknown Organization [facility] Address [facility] [address] [address]- Care Team Providers Care Bilingual Legal Assistant Name Role Phone Tesfaye Arthur MD Primary Care Physician [phone] Encounter 11/04/22 - 11/06/22 [facility] [address], [address] [id number] Attending Physician: Yusuf Bashir MD Allergies, Adverse [...] Type: Maintenance Start Date: 06/25/14 Status: Ordered sertraline 100 mg oral tablet See Instructions, Instructions: TAKE 1 TABLET BY MOUTH EVERY DAY, # 90 tab(s), 3 Refill(s), Type: Maintenance, Pharmacy: [id number], TAKE 1 TABLET BY MOUTH EVERY DAY, 68.5, in, 07/13/22 8:31:00 CDT, Height Measured, 202.4, lb, 07/13/22 8:31:00 CD... Start Date: 08/12/22 Status: Ordered Problem List Condition Confirmation Course Effective Dates Status Health Status Informant Allergic rhinitis due to animals Confirmed Active Allergic rhinitis due to dust mite Confirmed Active Allergic rhinitis due to pollen Confirmed Active Allergy to mold spores Confirmed Active Atopic dermatitis Confirmed Active Mild intermittent asthma Confirmed Active Obesity Probable Diagnosis Active Social anxiety disorder Confirmed Active Social History Social History Type Response Smoking Status Never (less than 100 in lifetime); Concerns about tobacco use in household: No 1 entered on: 06/29/22 Sex Female 1father smokes outside no quit info wanted Patient Care team information Care Team Personnel Name: Tesfaye Arthur MD Position: EMR Provider Access (Peds) Member Role: Primary Care Physician Address: Address: [place] [address] P: F: [place] [address]- [place]
--- OUTSIDE RECORDS SUMMARY | 2023-03-06 05:06 | XMS_ITS | Continuity of Care Document ---
Author Name Unknown Organization [facility] Address [address] [address]- Care Team Providers Care Analysis Manager Name Role Phone Tesfaye Arthur MD Primary Care Physician Encounter 12/08/19 - 12/10/[address] [place] 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) - 12/08/19 Allergy to mold spores(Discharge Diagnosis) - 12/08/19 Allergies, Adverse Reactions, Alerts No Known Medication [...] 90 tab(s), 3 Refill(s), Type: Maintenance, [id number], [facility] tab(s) Oral daily Start Date: 01/23/19 Status: Ordered fluticasone 50 mcg/inh nasal spray See Instructions, Instructions: USE 1 SPRAY IN EACH NOSTRL DAILY, # 32 gm, Pharmacy: [facility]placed [facility] Order [facility]acy, USE 1 SPRAY IN EACH NOSTRL DAILY Start Date: 08/20/14 Stop Date: 08/21/14 Status: Discontinued fluticasone 50 mcg/inh nasal spray = 1 spray(s), Nasal, daily, Instructions: for allergies, # 16 gm, 3 Refill(s), Type: Maintenance, [facility], 1 spray(s) Nasal daily,Instr:for allergies Start Date: 01/23/19 Status: Ordered montelukast 10 mg oral tablet = 1 tab(s) ( 10 mg ), PO, qPM, # 90 tab(s), 2 Refill(s), Type: Maintenance, [facility], 1 tab(s) Oral qpm [...] 1 EA, 0 Refill(s), Type: Maintenance, Pharmacy: [facility]/pharmacy #0241, Please keep on file until patient request refill., 2 puff(s) Inhale q4-6 hrs Start Date: 01/23/19 Status: Ordered Qvar 80 mcg/inh inhalation aerosol See Instructions, Instructions: INHALE 2 PUFFS BY MOUTH TWO TIMES A DAY, # 26.1 gm, [facility] [place], INHALE 2 PUFFS BY MOUTH TWO TIMES A DAY Start Date: 06/28/14 Stop Date: 08/21/14 Status: Discontinued Qvar 80 mcg/inh inhalation aerosol 2 puff(s), inh, 1-2x/day, # 1 EA, 3 Refill(s), Type: Maintenance Start Date: 02/10/15 Stop Date: 02/10/15 Status: Discontinued Qvar Redihaler 80 mcg/inh inhalation aerosol 2 puff(s), inh, 1-2x/day, # 1 EA, 5 Refill(s), Type: Maintenance, Pharmacy: [facility]/pharmacy #0241, 2 puff(s) Inhale 1-2x/day Start Date: 01/23/19 Status: Ordered Zoloft 50 mg oral tablet 1.5 tab(s) ( 75 mg ), PO, Daily, # 135 tab(s), 3 Refill(s), Type: Maintenance, Pharmacy: [facility], 1.5 tab(s) po daily Start Date: 07/21/17 Stop Date: 08/29/18 Status: Discontinued Zoloft 50 mg oral tablet = 1.5 tab(s) ( 75 mg ), PO, Daily, # 45 tab(s), 6 Refill(s), Type: Maintenance, Pharmacy: [facility]/pharmacy #0241, 1.5 tab(s) Oral daily,x30 day(s) [...] Allergic rhinitis due to pollen Discharge Diagnosis 12/08/19 Allergic rhinitis due to dust mite Discharge Diagnosis 12/08/19 Allergic rhinitis due to animals Discharge Diagnosis 12/08/19 Allergy to mold spores Discharge Diagnosis 12/08/19 Social History Social History Type Response Smoking Status Never (less than 100 in lifetime); Concerns about tobacco use in household: No 1 entered on: 08/25/17 1father smokes outside no quit info wanted
--- OUTSIDE RECORDS SUMMARY | 2023-03-06 05:06 | XMS_ITS | Continuity of Care Document ---
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 Diagnosis) - 05/13/18 Allergic rhinitis due to pollen(Discharge Diagnosis) - 05/13/18 Allergic rhinitis due to dust mite(Discharge Diagnosis) - 05/13/18 Allergy to mold spores(Discharge Diagnosis) - 05/13/18 04/29/18 - 05/01/[address] [place], [place] [address] Encounter Diagnosis Allergic rhinitis due to animals(Discharge Diagnosis) - 04/29/18 Allergic rhinitis due to pollen(Discharge Diagnosis) - 04/29/18 Allergic rhinitis due to dust mite(Discharge Diagnosis) - 04/29/18 Allergy to mold spores(Discharge Diagnosis) - 04/29/18 04/04/18 - 04/06/[address] [address] Encounter Diagnosis Allergic rhinitis due to pollen(Discharge Diagnosis) - 04/04/18 Allergic rhinitis due to animals(Discharge Diagnosis) - 04/04/18 Allergic rhinitis due to dust mite(Discharge Diagnosis) - 04/04/18 Allergy to mold spores(Discharge Diagnosis) - 04/04/18 03/18/18 - 03/20/18 [facility] [address] [facility] [place], [place] [address] Encounter Diagnosis Allergic rhinitis due to pollen(Discharge Diagnosis) - 03/18/18 Allergic rhinitis due to animals(Discharge Diagnosis) - 03/18/18 Allergy to mold spores(Discharge Diagnosis) - 03/18/18 Allergic rhinitis due to dust mite(Discharge Diagnosis) - 03/18/18 02/18/18 - 02/20/18 [facility] [address] [place], [place] [address] Encounter Diagnosis Allergic rhinitis due to pollen(Discharge Diagnosis) - 02/18/18 Allergic rhinitis due to animals(Discharge Diagnosis) - 02/18/18 Allergic rhinitis due to dust mite(Discharge Diagnosis) - 02/18/18 Allergy to mold spores(Discharge Diagnosis) - 02/18/18 Allergies, Adverse Reactions, Alerts No Known Medication [...] daily??as needed ?? F/U 1 year Ordered: 43237 spmtry w/vc expiratory paul +-mxml vol vntj (Form/Charge), Instructions: form, Asthma, mild persistent 46666 nitric oxide gas determination (Charge), Quantity: 1, [...] every 4 wks in August 2014 at [facility]. 2003 T/G/R 1:1 at 0.70 ml, Mckay Mold [...] 2 Refill(s), Type: Maintenance, Pharmacy: [facility], 1 tab(s) po qpm Start Date: 02/06/18 [...] EA, 1 Refill(s), Type: Maintenance, Pharmacy: [facility], Please keep on file until [...] TIMES A DAY, # 26.1 gm, Pharmacy: [facility], INHALE 2 PUFFS BY MOUTH TWO TIMES A DAY Start Date: 06/28/14 Stop Date: 08/21/14 Status: Discontinued Qvar Redihaler 80 mcg/inh inhalation aerosol 2 puff(s), inh, 1-2x/day, # 3 EA, 2 Refill(s), Type: Maintenance, Pharmacy: [facility], 2 puff(s) inh 1-2x/day Start Date: 02/06/18 Status: Ordered Zoloft 50 mg oral tablet 1.5 tab(s) ( 75 mg ), PO, Daily, # 135 tab(s), 3 Refill(s), Type: Maintenance, Pharmacy: [facility], 1.5 tab(s) po daily Start [...] Discharge Diagnosis 06/16/16 Allergic rhinitis due to dust mite Discharge Diagnosis 05/13/18 Allergic rhinitis due to animals Discharge Diagnosis 08/20/17 Allergic rhinitis due to pollen Discharge Diagnosis 10/11/17 Allergic rhinitis due to dust mite Discharge Diagnosis 04/29/18 Allergic rhinitis due to animals Discharge Diagnosis 05/13/18 Allergic rhinitis due to pollen Discharge Diagnosis 04/04/18 Allergy to mold spores Discharge Diagnosis 11/19/17 Allergic rhinitis due to pollen Discharge Diagnosis 11/19/17 Social anxiety disorder Discharge Diagnosis 06/07/17 Non-Specified Allergic rhinitis due to animals Discharge Diagnosis 10/15/17 Allergy to mold spores Discharge Diagnosis 05/13/18 Allergic rhinitis due to pollen Discharge Diagnosis 05/13/18 Allergic rhinitis due to [...] rhinitis due to pollen Discharge Diagnosis 04/29/18 Allergic rhinitis due to [...] rhinitis due to pollen Discharge Diagnosis 09/16/16 [facility] (well child check) Discharge Diagnosis 04/29/17 [...] 68.5 in (02/06/18 8:26 AM) 68.5 in (08/25/17:17 AM) 68.25 in (06/07/17 9:52 AM) Weight Measured 141.8 lb (02/06/18: AM) 134.8 lb (08/25/17 8:17 AM) 141.8 lb (06/07/17 9:52 AM) Weight 8.56 lb (10/30/15 11:30 AM) Body Mass Index 21.24 kg/m2 (02/06/18 8:26 AM) 20.2 kg/m2 (08/25/17 8:17 AM) 21.4 kg/m2 (06/07/17 9:52 AM) BSA 1.76 m2 (02/06/18: AM) 1.72 m2 (08/25/17 8: AM) 1.76 m2 (06/07/17 9:52 AM) Temperature Temporal [96.8-100.4 DegF] 99 DegF (08/25/17 8: AM) 98.2 DegF (10/30/15 11:30 AM) Blood Pressure [90-138/45-84 mmHg] 102/69mmHg (02/06/18 8:26 AM) 104/65mmHg (08/25/17 8:17 AM) 99/63mmHg (06/07/17 9:52 AM) Mean Arterial Pressure 80 mmHg (02/06/18 8:26 AM) 78 mmHg (08/25/17 8:17 AM) 75 mmHg (06/07/17 9:52 AM) Peripheral Pulse Rate [55-90 bpm] 60 bpm (02/06/18 8:26 AM) 68 bpm (08/25/17 8:17 AM) 56 bpm (04/29/17 2:19 PM) Oxygen Saturation [94-100 %] 98 % (10/30/15 11:30 AM) Allergies Verified? Yes (08/25/17 8:17 AM) Yes (06/07/17 9:52 AM) Medication History Verified? Yes (08/25/17 8:17 AM) Yes (06/07/17 9:52 AM) Social History Social History Type Response Smoking Status Never (less than 100 in lifetime); Concerns about tobacco use in household: No 1 entered on: 08/25/17 1father smokes outside no quit info wanted
--- OUTSIDE RECORDS SUMMARY | 2023-03-06 05:06 | XMS_ITS | Continuity of Care Document ---
Author Name Unknown Organization [facility] Address [address] [address]- Care Team Providers Care Etched Circuit Processor Name Role Phone Tesfaye Arthur MD Primary Care Physician Encounter 05/13/18 - 05/15/[address] [facility] [address] [place], [place] [address] Encounter Diagnosis Allergic rhinitis [...] DAILY, # 32 gm, Pharmacy: [facility], USE 1 SPRAY IN EACH NOSTRL DAILY Start Date: 08/20/14 Stop Date: 08/21/14 Status: Discontinued montelukast 10 mg oral tablet 1 tab(s) ( 10 mg ), PO, qPM, # 90 tab(s), 2 Refill(s), Type: Maintenance, [facility], 1 tab(s) po qpm Start Date: 02/06/18 Status: Ordered montelukast 5 mg oral tablet, chewable 1 tab(s) ( 5 mg ), Chewed, qPM, # 90 tab(s), 1 Refill(s), Type: Maintenance Start Date: 02/10/15 Stop Date: 02/10/15 Status: Discontinued montelukast 5 mg oral tablet, chewable 1 tab(s) ( 5 mg ), Chewed, qPM, # 90 tab(s), 1 Refill(s), Type: Maintenance, Pharmacy: [facility]/pharmacy#[id number], 1 tab(s) chewed qpm Start [...] 2 EA, 1 Refill(s), Type: Maintenance, Pharmacy: [facility], Please keep on file until [...] A DAY, # 26.1 gm, Pharmacy: [facility], INHALE 2 PUFFS BY MOUTH TWO [...]
--- OUTSIDE RECORDS SUMMARY | 2023-03-06 05:06 | XMS_ITS | Continuity of Care Document ---
Author Name Unknown Organization [facility] Address [address] [place] [address]- Care Team Providers Care Forest Practices Field Coordinator Name Role Phone Tesfaye Arthur MD Primary Care Physician [phone] Encounter 01/19/20 - 01/21/[address] [place], [place] [address] Encounter Diagnosis Allergic rhinitis due to pollen(Discharge Diagnosis) - 01/19/20 Allergic rhinitis due to animals(Discharge Diagnosis) - 01/19/20 Allergic rhinitis due to dust mite(Discharge Diagnosis) - 01/19/20 Allergy to mold spores(Discharge Diagnosis) - 01/19/20 Allergies, Adverse Reactions, Alerts No Known Medication [...] 90 tab(s), 3 Refill(s), Type: Maintenance, [id number] tab(s) Oral daily Start Date: 01/23/19 Status: Ordered fluticasone 50 mcg/inh nasal spray See Instructions, Instructions: USE 1 SPRAY IN EACH NOSTRL DAILY, # 32 gm, Pharmacy: [facility], USE 1 SPRAY IN EACH NOSTRL DAILY Start Date: 08/20/14 Stop Date: 08/21/14 Status: Discontinued fluticasone 50 mcg/inh nasal spray = 1 spray(s), Nasal, daily, Instructions: for allergies, # 16 gm, 3 Refill(s), Type: Maintenance, [id number], 1 spray(s) Nasal daily,Instr:for allergies Start Date: 01/23/19 Status: Ordered montelukast 10 mg oral tablet = 1 tab(s) ( 10 mg ), PO, qPM, # 90 tab(s), 2 Refill(s), Type: Maintenance, [id number] 1 tab(s) Oral qpm Start Date: 01/23/19 Status: Ordered montelukast 5 mg oral tablet, chewable 1 tab(s) ( 5 mg ), Chewed, qPM, # 90 tab(s), 1 Refill(s), Type: Maintenance, [id number], 1 tab(s) chewed qpm Start [...] 1 EA, 0 Refill(s), Type: Maintenance, Pharmacy: [facility]/pharm[facility] #[id number], Please keep on file until patient request refill., 2 puff(s) Inhale q4-6 hrs Start Date: 01/23/19 Status: Ordered Qvar 80 mcg/inh inhalation aerosol See Instructions, Instructions: INHALE 2 PUFFS BY MOUTH TWO TIMES A DAY, # 26.1 gm, Pharmacy: [facility], INHALE 2 PUFFS BY MOUTH TWO TIMES A DAY Start Date: 06/28/14 Stop Date: 08/21/14 Status: Discontinued Qvar 80 mcg/inh inhalation aerosol 2 puff(s), inh, 1-2x/day, # 1 EA, 3 Refill(s), Type: Maintenance Start Date: 02/10/15 Stop Date: 02/10/15 Status: Discontinued Qvar Redihaler 80 mcg/inh inhalation aerosol 2 puff(s), inh, 1-2x/day, # 1 EA, 5 Refill(s), Type: Maintenance, Pharmacy: [facility]/pharmacy #[id number], 2 puff(s) Inhale 1-2x/day Start Date: 01/23/19 Status: Ordered Zoloft 50 mg oral tablet 1.5 tab(s) ( 75 mg ), PO, Daily, # 135 tab(s), 3 Refill(s), Type: Maintenance, [facility]acy: [facility], 1.5 tab(s) po daily Start Date: 07/21/17 Stop Date: 08/29/18 Status: Discontinued Zoloft 50 mg oral tablet = 1.5 tab(s) ( 75 mg ), PO, Daily, # 45 tab(s), 6 Refill(s), Type: Maintenance, Pharmacy: [facility]/pharmacy #[id number], 1.5 tab(s) Oral daily,x30 [...] Allergic rhinitis due to pollen Discharge Diagnosis 01/19/20 Allergic rhinitis due to animals Discharge Diagnosis 01/19/20 Allergic rhinitis due to dust mite Discharge Diagnosis 01/19/20 Allergy to mold spores Discharge Diagnosis 01/19/20 Social History Social History Type Response Smoking Status Never (less than 100 in lifetime); Concerns about tobacco use in household: No 1 entered on: 08/25/17 1father smokes outside no quit info wanted
--- NOTE | 2023-03-06 06:52 | ED.NURSE ---
EMS IV removed, cath intact. DC instructions given to pt. PT calling friends for ride home.
== END 2023-03-06 06:57 | disposition home or self-care (01) ==
LOC: ED 05:00
PROVIDERS: Emergency Provider Family Medicine
DX: F10.129 Alcohol abuse with intoxication, unspecified (principal); S01.81XA Laceration without foreign body of other part of head, initial encounter
CPT/HCPCS: 99282; 99283

== ENCOUNTER 2024-10-19 11:03 | Day surgery (SDC) | payer OTHER, SELFPAY ==
[2024-10-19] VITALS (19 sets, daily range): BP systolic 112–158; BP diastolic 52–90; PULSE 60–94; RESP 14–22; TEMP 35.8–36.8; O2SAT 95–100; BMI 32.9
--- NOTE | 2024-10-19 10:43 | W.ANESCHARGE ---
Anesthesia Charges Start Date/Time Anesthesia Start Date: 10/19/24 Anesthesia Start Time: 12:09 Stop Date/Time Anesthesia Stop Date: 10/19/24 Anesthesia Stop Time: 13:03
[2024-10-19 11:42] LABS: Ur HCG Qualitative* Negative (Negative)
[2024-10-19] MEDS: SODIUM CHLORIDE 0.9 % (FLUSH) 10 ML SYRINGE IVF (12:02)
[2024-10-19] MEDS: LACTATED RINGERS 1000 ML 1,000 ML 35 ML IV (12:03)
[2024-10-19] MEDS: COCAINE HCL 4 % 4 ML SOLUTION NOSTRIL-B (12:21)
[2024-10-19] MEDS: AYR SALINE NASAL GEL 1 APPLIC NOSTRIL-B (12:25)
--- NOTE | 2024-10-19 12:34 | W.ANESCHARGE ---
Anesthesia Charges Start Date/Time Anesthesia Start Date: 10/19/24 Anesthesia Start Time: 12:09 Stop Date/Time Anesthesia Stop Date: 10/19/24 Anesthesia Stop Time: 13:03
[2024-10-19] MEDS: BUPIVACAINE 0.5%/EPINEPHRINE 0.9 MG (30.9 ML) INJECTION (12:46)
[2024-10-19] MEDS: MUPIROCIN 1 GM PACKET 1 APPLIC TOPICAL (12:46)
--- NOTE | 2024-10-19 13:13 | W.PM.ENTPROC ---
Procedure Note Date of procedure: 10/19/24 Procedure: Preoperative diagnosis chronic tonsillitis, adenotonsillar hypertrophy, upper airway obstruction, nasal obstruction, bilateral inferior turbinate hypertrophy, deviated septum, nasal obstruction Postoperative diagnosis same Procedure adenotonsillectomy , limited nasal septoplasty, submucous partial resection inferior turbinates bilateral Under general endotracheal anesthesia the patient was prepped and draped in usual fashion. The McIvor mouth gag was inserted the tongue retracted forward. No submucous cleft was noted on inspection or palpation. The right and left tonsils were removed with a combination of needlepoint cautery, bipolar cautery and suction cautery. Meticulous hemostasis was achieved. The adenoid pad was visualized with a laryngeal mirror and removed with suction cautery. The nose was decongested with cocaine pledgets and injected. I was able to elevate the mucosa over the right septal deviation and resected deflected portion and then simply push the septum to midline. The the bone was trimmed and returned to that space. A stab incision was made in the anterior of the right inferior turbinate a tunnel created with a Santino dissector. Leanna bone was outfractured and a conservative anterior submucous resection was performed. The Coblation Wand was used for hemostasis and to cauterize intramurally along the inferior 10%. This was repeated on the left side in identical fashion. Merocel packing was placed in each side of the nose. The patient procedure well The patient was extubated in the operating room taken recovery in satisfactory condition. Blood loss was less than 10 mL. Surgeon: Bismark Izaguirre MD
[2024-10-19] MEDS: fentaNYL 100 MCG/2 ML inj 50 MCG IVP (13:15)
--- NOTE | 2024-10-19 13:34 | SUR.PHASEI ---
patient met discharge criteria per anesthesia
[2024-10-19] MEDS: OXYCODONE 1 MG/ML ORAL SOLN 5 MG PO ×3 (14:11→22:30)
[2024-10-19] MEDS: ACETAMINOPHEN 160 MG/5 ML CUP 320 MG PO ×2 (14:12→20:44)
--- NOTE | 2024-10-19 18:15 | PM.IMCN1 ---
Date of Consult Consult date: 10/19/24 Primary Care Provider: Jayashree Calderon MD Consult Narrative Narrative: Arlene Kim is a 24 year old female with past medical history of asthma, polycystic ovarian syndrome with oligomenorrhea who was admitted for an elective adenotonsilectomy & septoplasty. Patient was seen after her surgery and was doing well. Her asthma started when she was 9-year-old and since that time she mentioned that she did not need to come to the emergency room for help, she states that she does not recall needing systemic steroids for her asthma or even admission/ hospitalization for asthma exacerbation. She states that she uses her albuterol rescue inhaler about once every 2 days. Patient looks comfortable without wheezing on my exam. Review of Systems Status of ROS: Reports: 6 or more systems reviewed and unremarkable except as noted in History and below [facility] Medical History (Updated 10/19/24 @ 19:17 by Sabrina Hinson MD) Acute right otitis media ?H66.91 - Otitis media, unspecified, right ear (ICD-10) Eczema ?L30.9 - Dermatitis, unspecified (ICD-10) Acne ?L70.9 - Acne, unspecified (ICD-10) Family History Grandmother Stroke Grandfather Stroke Father High blood pressure Social History Narrative: Goes to [employer]. 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 Planning to apply for med school. Smoking Status: Unknown if ever smoked How often do you have a drink containing alcohol: 2-4 times a month AUDIT-C Alcohol total score: 2 Meds Home Medications and Allergies Home Medications ?Medication ?Instructions ?Recorded ?Confirmed ?Type triamcinolone acetonide 0.1 % 1 applic topical BID PRN 02/13/24 10/02/24 History topical cream montelukast 10 mg tablet 10 mg PO QHS PRN 09/27/24 10/19/24 History Allergies Allergy/AdvReac Type Severity Reaction Status Date / Time No Known Drug Allergies Allergy Verified 10/19/24 11:35 Exam Narrative: Exam Narrative: Physical exam GENERAL: Comfortable, no acute distress. HEAD AND NECK: Nasal dressing. CARDIOVASCULAR: RRR. Normal S1, S2. No murmurs. RESPIRATORY: Clear to auscultation B/L. Good air entry B/L. No wheezes or rhonchi. GASTROINTESTINAL: not tender to palpation. NEUROLOGY: Alert, awake, oriented X 3. Normal speech. PSYCH: Normal mood, normal affect. For Const: Vital Signs, click to edit/add: Vital Signs - 24 hr 10/19/24 11:45 10/19/24 12:59 10/19/24 13:05 Temperature 97.3 F L 97.4 F L 97.4 F L Pulse Rate 62 94 89 Respiratory Rate 20 22 19 Blood Pressure 118/71 117/74 116/68 Pulse Oximetry 100 97 98 Oxygen Delivery Me thod Room Air Blow By Blow By Oxygen Flow Rate 10 10 Fraction of Inspir ed Oxygen 100 100 10/19/24 13:10 10/19/24 13:15 10/19/24 13:20 Temperature 97.4 F L 97.4 F L 97.4 F L Pulse Rate 82 72 68 Respiratory Rate 18 16 15 Blood Pressure 117/79 116/67 116/73 Pulse Oximetry 97 97 98 Oxygen Delivery Me thod Blow By Blow By Blow By Oxygen Flow Rate 10 10 10 Fraction of Inspir ed Oxygen 100 100 100 10/19/24 13:25 10/19/24 13:36 10/19/24 13:45 Temperature 98.2 F 96.8 F L 96.8 F L Pulse Rate 69 73 73 Respiratory Rate 15 14 14 Blood Pressure 120/76 140/75 H 140/75 H Pulse Oximetry 98 98 100 Oxygen Delivery Me thod Blow By Room Air Room Air Oxygen Flow Rate 10 Fraction of Inspir ed Oxygen 100 10/19/24 14:00 10/19/24 14:15 10/19/24 14:30 Temperature 96.9 F L 96.6 F L Pulse Rate 85 75 75 Respiratory Rate 16 16 16 Blood Pressure 129/83 141/73 H 140/65 H Pulse Oximetry 100 100 100 Oxygen Delivery Me thod Room Air Room Air Room Air Oxygen Flow Rate Fraction of Inspir ed Oxygen 10/19/24 15:00 10/19/24 15:00 10/19/24 15:00 Temperature 96.5 F L Pulse Rate 82 Respiratory Rate 18 Blood Pressure 132/60 Pulse Oximetry 100 100 100 Oxygen Delivery Me thod Room Air Room Air Oxygen Flow Rate Fraction of Inspir ed Oxygen 10/19/24 15:30 10/19/24 16:30 Temperature 96.5 F L Pulse Rate 93 82 Respiratory Rate 18 18 Blood Pressure 150/90 H 158/80 H Pulse Oximetry 100 100 Oxygen Delivery Me thod Room Air Room Air Oxygen Flow Rate Fraction of Inspir ed Oxygen Assessment and Plan Assessment and plan (1) S/P tonsillectomy and adenoidectomy: Problem comment: -Hx of chronic tonsillitis, adenotonsillar hypertrophy, upper airway obstruction, nasal obstruction, bilateral inferior turbinate hypertrophy, deviated septum, nasal obstruction -S/p adenotonsillectomy , limited nasal septoplasty, submucous partial resection inferior turbinates bilateral on 10/19 Status: Acute (2) Enlarged tonsils: Problem comment: S/P Sx Status: Acute (3) Asthma: Problem comment: -Mild asthma -On Montelucast and rescue albuterol Inhaler prn -No Hx of syst steroids use. -ordered DuoNebs p.r.n. for shortness of breath, chest discomfort, wheezing Status: Acute (4) PCOS (polycystic ovarian syndrome): Problem comment: on OCPs Status: Acute (5) Oligomenorrhea: Status: Acute Plan as above Total Time Spent Total Time Spent: Time spent: Today I spent 75 minutes seeing the patient, discussing the patient with ER staff, reviewing Expanse and EPIC notes/diagnostics, discussing the care plan with our care time that includes pharmacy, RT, and documenting my impressions and plan in the medical record.
[2024-10-19] MEDS: IBUPROFEN 100 MG/5 ML SUSP 200 MG PO ×2 (18:56→22:31)
--- NOTE | 2024-10-19 19:33 | PC.NURSE ---
End of shift-- Very pleasant and cooperative, alert and oriented patient. VSS, though mildly hypertensive, and pt is afebrile. SPO2 maintained >94% on RA. Pain appears well managed with Oxycodone, Motrin and Tylenol. Dressing beneath nose had small amount of bloody drainage and was changed. LS CTA. She denied nausea and is tolerating small amounts of full liquids at this time. She was up to the BR with SBA and tolerated it well. Report to TAIWO Gray.
[2024-10-19] MEDS: hydrOXYzine pamoate 25 MG CAPSULE PO (22:31)
[2024-10-20] MEDS: OXYCODONE 1 MG/ML ORAL SOLN 5 MG PO ×2 (02:26→05:57)
[2024-10-20] MEDS: ACETAMINOPHEN 160 MG/5 ML CUP 320 MG PO ×2 (02:26→08:52)
[2024-10-20 02:37] VITALS: BP 115/64; PULSE 71; RESP 18; TEMP 36.5; O2SAT 99
[2024-10-20] MEDS: IBUPROFEN 100 MG/5 ML SUSP 200 MG PO (05:22)
--- NOTE | 2024-10-20 06:56 | PC.NURSE ---
End of shift report [id number]: Pleasant and cooperative with cares. Alert and oriented x 4. Pain to throat and nose well managed with current regimen. Tolerated ice pack to throat for pain. Dressing to nose changed x 3 this shift. Dressing at 0600 had scant amount of serosanguineous drainage. No active bleeding visualized to throat. Tolerating fluids and ice chips along with soft foods. Denies any SOB. Continuous pulse ox with O2 sats maintained >95% throughout the night.
[2024-10-20 07:00] VITALS: BP 122/74; PULSE 79; RESP 16; TEMP 36.6; O2SAT 96; O2SAT 97
[2024-10-20] MEDS: FLUOXETINE HCL 20 MG CAPSULE 40 MG PO (08:52)
--- NOTE | 2024-10-20 13:04 | PC.NURSE ---
Discharge-- Pleasant and cooperative, alert and oriented patient was discharged to home ambulatory with mother. VSS and pt is afebrile. SPO2 maintained>90% on RA. Pain appears well managed with Oxycodone, Motrin and Tylenol. Dressing beneath nose was changed and is C/D/I. Minimal bloody drainage noted. She denied nausea and tolerated full liquids without difficulty, but stated that she was not hungry. Discharge education was provided including diagnosis info, symptoms to report, medications and follow up plan. All questions answered and SL was removed with tip intact.
== END 2024-10-20 09:55 | disposition home or self-care (01) ==
LOC: OR 11:04 → MEDSURG 13:56
PROVIDERS: Anesthesiology; PCP Family Medicine; Visit Provider Otolaryngology
PROC: (CPT 42821; principal; 2024-10-19 12:30)
DX: J35.01 Chronic tonsillitis (principal); J35.3 Hypertrophy of tonsils with hypertrophy of adenoids; J34.2 Deviated nasal septum; J34.3 Hypertrophy of nasal turbinates; J34.89 Other specified disorders of nose and nasal sinuses; J45.20 Mild intermittent asthma, uncomplicated; E28.2 Polycystic ovarian syndrome
CPT/HCPCS: 42821; 30520; 30140; 00170; 81025; 88304; A9270; J0330; J1100; J2250; J2704; J3010; J3490; J7120